=== PATIENT | female | born 1960 | race Caucasian/White ===

== ENCOUNTER 2020-04-01 09:04 | Outpatient (CLI) | payer MEDICARE, SELFPAY ==
--- NOTE | 2020-04-01 09:13 | MM_ITS ---
WS: [id number] Bilateral diagnostic digital mammogram, 04/01/2020 Clinical Data: BLOODY NIPPLE DISCHARGE Comparison: 07/24/2018, 12/16/2015, 09/05/2008, 12/21/2006. Findings: The nipple discharge is from the left breast. The breasts show fatty replacement. There are no spicul ated masses or clustered calcifications. No well-defined masses or cysts are seen. There are lymph no rosales in both axilla. MM/[id number] Impression: 1. Negative bilateral mammograms unchanged. 2. Left breast ultrasound will be performed. BIRADS: 0-Incomplete: Need additional imaging evaluation FOLLOW UP: Need Additional Imaging The CAD frequency checker was used.
--- NOTE | 2020-04-01 09:47 | US_ITS ---
WS: [id number] Left breast ultrasound, 04/01/2020 Clinical Data: BLOODY NIPPLE DISCHARGE Comparison: Mammogram, 04/01/2020 Findings: Imaging of the left areola demonstrated only normal breast tissue. There were mammary ducts that coul d be seen. There were no cysts or masses. Comparable imaging of the areola of the right breast was obtained for comparison and this was normal. US/US breast LT limited* [id number] Impression: 1. Normal left breast ultrasound. 2. If nipple discharge continues a left breast ductogram may be helpful. BIRADS: 2-Benign FOLLOW UP: See Report
== END 2020-04-01 09:05 | disposition home or self-care (01) ==
LOC: RADSHAW 09:10
PROVIDERS: PCP Family Medicine; Visit Provider Family Medicine
DX: N64.52 Nipple discharge (principal)
CPT/HCPCS: 76642; 77066

== ENCOUNTER 2020-05-19 11:02 | Emergency (ER) | payer MEDICARE, SELFPAY ==
[2020-05-19 11:03] VITALS: BP 148/90; PULSE 81; RESP 18; TEMP 37.1; O2SAT 95; BMI 44.6
--- NOTE | 2020-05-19 11:04 | ED_ITS ---
HPI - Extremity Injury (Lower) General: Chief Complaint: Fall Stated Complaint: rt hamstring pain Time Seen by Provider: 05/19/20 11:03 History of Present Illness: HPI Narrative: 60-year-old female comes in complaining of right posterior leg pain specifically the right posterior leg she not strike her head there no other injuries. Patient slipped and fell backwards. No other injuries loss of her pain is in the posterior right upper leg Review of Systems Const: Denies: fever(s), chills, body aches, change in appetite, fatigue or malaise ENMT: Denies: throat pain, ear or mastoid pain, nasal discharge or nasal congestion Card: Denies: chest pain, edema, dyspnea on exertion or orthopnea Resp: Denies: dyspnea, productive cough or non-productive cough GI: Denies: abdominal pain, nausea, vomiting, hematemesis, coffee ground emesis, diarrhea, constipation, bloating, hematochezia or melena : Denies: flank pain, difficulty voiding, dysuria, urinary frequency or urinary urgency Skin/Breast: Denies: rash or pruritus Physical Exam Const: COMMON NORMALS: no acute distress GENERAL APPEARANCE: cooperative and comfortable ORIENTATION/CONSCIOUSNESS: Yes awake, Yes oriented to person, Yes oriented to place and Yes oriented to time HENMT: COMMON NORMALS: normocephalic, atraumatic, hearing grossly normal bilaterally, external ears normal, EAC's normal, TM's normal bilaterally, Normal nasal mucous membranes and turbinates present, moist oral mucous membranes and oropharynx normal HEAD & SCALP: normocephalic and atraumatic NOSE: Normal nasal mucous membranes and turbinates present EXTERNAL EAR: Yes external ears normal EXTERNAL AUDITORY CANAL: EAC's normal TYMPANIC MEMBRANE: TM's normal bilaterally Eye: COMMON NORMALS: Equal, round and reactive pupils present, EOMs intact bilaterally, conjunctivae normal and no scleral icterus CONJUNCTIVA: Yes conjunctivae normal PUPIL: Yes Equal, round and reactive pupils present Neck/C-Spine: COMMON NORMALS: full ROM, no lymphadenopathy, supple and no JVD Lymph: LYMPHATIC: no lymphadenopathy noted and no lymphedema noted Resp: COMMON NORMALS: normal respiratory effort, No retractions, No use of accessory muscles and clear to auscultation bilaterally AUSCULTATION: clear to auscultation bilaterally Cardio: COMMON NORMALS: no JVD, regular rate, regular rhythm and No murmurs present (Cardio) RATE: regular rate RHYTHM: regular rhythm GI: COMMON NORMALS: Soft to palpation and No hepatosplenomegaly present AUSCULTATION: Yes normoactive bowel sounds PALPATION: Yes Soft to palpation, No Tenderness to palpation present (GI), No Guarding due to palpation present (GI) and Yes No hepatosplenomegaly present Extremity: COMMON NORMALS: normal to inspection, capillary refill normal, no clubbing, cyanosis or edema, no calf tenderness and no pedal edema Neuro: SENSORIUM/ORIENTATION: Yes oriented to person, Yes oriented to place and Yes oriented to time Skin: COMMON NORMALS: no rashes or lesions noted GENERAL SKIN EXAM: no rashes or lesions noted Course Vital Signs: Vital signs: Vital Signs Temperature 98.7 F 05/19/20 11:03 Pulse Rate 77 05/19/20 11:51 Respiratory Rate 16 05/19/20 11:51 Blood Pressure 142/84 05/19/20 11:51 Pulse Oximetry 98 05/19/20 11:51 MDM - Extremity Injury (Lower) MDM Narrative: Medical decision making narrative: X-rays negative no sign of fracture.'s treat for muscle strain anti-inflammatory and antispasmodics follow- up with primary care as needed Discharge Plan Discharge Patient Disposition: Home Clinical Impression: Fall, Hamstring muscle strain Condition: Stable Prescriptions: New hydrocodone-acetaminophen 5-325 mg tablet 1 tab PO Q6H PRN (Reason: pain) Qty: 20 RF: 0 diclofenac sodium 75 mg tablet,delayed release (DR/EC) 75 mg PO Q12H PRN (Reason: pain) Qty: 20 RF: 0 No Action Prozac 40 mg Capsule 40 mg PO DAILY RF: 0 Lipitor 10 mg Tablet 10 mg PO DAILY RF: 0 ibuprofen 800 mg Tablet 800 mg PO BID PRN (Reason: Pain) RF: 0 methotrexate sodium 2.5 mg Tablet 20 mg PO Q7D RF: 0 Protonix 40 mg Tablet,Delayed Release (Dr/Ec) 40 mg PO DAILY RF: 0 lisinopril 10 mg Tablet 10 mg PO DAILY RF: 0 folic acid 1 mg Tablet 1 mg PO DAILY RF: 0 Discharge Orders: Discharge Order (Routine); Ordered 05/19/20 Ordered By: Payam Pace Referrals: Puneet Corona MD [Primary Care Provider] - Discharge Diet: Usual diet Discharge Activity: Increase activity as tolerated Discharge Date/Time: 05/19/20 11:51 Coding Level of Care Code 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
--- NOTE | 2020-05-19 11:14 | XRR_ITS ---
PROCEDURE INFORMATION: Exam: XR Right Hip with Pelvis when Performed Exam date and time: 05/19/2020 11:36 AM Age: 60 years old Clinical indication: Pain and injury or trauma; Initial encounter; Blunt trauma (contusions or hematomas); Hip pain; Right hip; Patient HX: Fall right posterior hip and knee pain; Additional info: Pain after fall TECHNIQUE: Imaging protocol: XR Right hip with pelvis when performed. Views: 1 view. COMPARISON: CT Abdomen/Pelvis Renal [id number] 01/04/2019 10:22 PM FINDINGS: Bones/joints: Mild degenerative changes within the hip including mild joint space narrowing and early osteophyte formation. No fracture. The trabecular stress markings normal. Soft tissues: Unremarkable. XR/XR hip RT 2-3V wo/w pel* [id number] IMPRESSION: Mild degenerative changes within the hip.
--- NOTE | 2020-05-19 11:14 | XRR_ITS ---
PROCEDURE INFORMATION: Exam: XR Right Knee Exam date and time: 05/19/2020 11:36 AM Age: 60 years old Clinical indication: Pain and injury or trauma; Fall; Initial encounter; Blunt trauma; Knee; Right; Additional info: Pain after fall TECHNIQUE: Imaging protocol: XR Right knee. Views: 3 views. COMPARISON: No relevant prior studies available. FINDINGS: Bones/joints: Osseous structures of the knee normal. No fracture. No joint effusion. Soft tissues unremarkable. Soft tissues: Venous varicosities in the soft tissues adjacent to the proximal tibia XR/XR knee RT 3V* [id number] IMPRESSION: Normal knee.
[2020-05-19] MEDS: HYDROcodone-acetaminophen 5-325 mg Tablet 2 TAB PO (11:32)
[2020-05-19 11:51] VITALS: BP 142/84; PULSE 77; RESP 16; O2SAT 98
== END 2020-05-19 11:51 | disposition home or self-care (01) ==
LOC: ER 11:44
PROVIDERS: Emergency Provider Family Medicine; PCP Family Medicine
DX: S76.311A Strain of muscle, fascia and tendon of the posterior muscle group at thigh level, right thigh, initial encounter (principal); W01.0XXA Fall on same level from slipping, tripping and stumbling without subsequent striking against object, initial encounter
CPT/HCPCS: 12345; 73502; 73562; 99281; 99283; E0114

== ENCOUNTER 2020-10-06 07:31 | Outpatient (CLI) | payer MEDICARE, SELFPAY ==
--- NOTE | 2020-10-06 07:41 | MR_ITS ---
WS: [id number] MRI LUMBAR SPINE NONCONTRAST HISTORY: RADICULAR LOW BACK PAIN > 3 MONTHS COMPARISON: Lumbar spine radiograph 08/04/2020, prior MRI lumbar spine 04/03/2013 and 10/05/2011. TECHNIQUE: Sagittal and axial multisequence imaging is submitted. Straightening of the normal cervical lordosis. Mild scoliosis of the thoracic spine. Disc space narro wing and degeneration with osteophytes at most levels in the thoracic spine. 5 nonrib-bearing vertebr al bodies have been identified on prior studies including the lumbar spine radiograph of 08/04/2020. This numbering pattern will be utilized today and is similar to the prior numbering of the vertebral bodies on MRI. Posterior alignment is normal. There is a small amount of marrow edema along the superior endplates o f L2 and L3. Osteophytic ridging at all levels. No acute fracture. Conus terminates normally at L2. L1-L2: Mild annular disc bulging and osteophytic ridging. Fluid in the facet joints with mild bilater al foraminal narrowing. L2-L3: Diffuse annular disc bulging and osteophytic ridging. Asymmetric disc osteophyte complex in th e LEFT paracentral location. Mild bilateral foraminal stenosis. L3-L4: Diffuse asymmetric disc bulging and osteophytic ridging. Marked facet and ligamentum flavum hy pertrophy. Moderate bilateral foraminal stenosis and mild central stenosis. Bilateral narrowing of th e subarticular recesses. L4-L5: Diffuse annular disc bulging and osteophytic ridging. Marked facet and ligamentum flavum hyper trophy. Moderate bilateral foraminal stenosis and mild central stenosis. RIGHT hemilaminectomy defect . Encroachment into the subarticular recesses bilaterally. L5-S1: Diffuse annular disc bulging and osteophytic ridging. Focal RIGHT paracentral disc protrusion without contact or displacement on the nerve roots. RIGHT hemilaminectomy defect. Moderate RIGHT and mild LEFT foraminal stenosis. Paravertebral soft tissues are normal. MR/MR lumbar spine wo con* [id number] IMPRESSION: 1. Moderate facet joint arthritis with osteophyte and disc disease throughout the lumbar spine. 2. Prior laminectomy defects on the RIGHT at L4-5 and L5-S1. 3. Moderate RIGHT and mild LEFT foraminal stenosis at L5-S1. 4. Moderate bilateral foraminal and mild central stenosis at L3-4 and L4-5 wit h narrowing of the subarticular recesses. 5. At L2-3 asymmetric disc osteophyte complex LEFT paracentral with encroachme nt into the lateral recess.
== END 2020-10-06 07:32 | disposition home or self-care (01) ==
LOC: RADSHAW 07:37
PROVIDERS: PCP Family Medicine; Visit Provider Family Medicine
DX: M54.16 Radiculopathy, lumbar region (principal); M25.78 Osteophyte, vertebrae; M51.36 Other intervertebral disc degeneration, lumbar region; M96.1 Postlaminectomy syndrome, not elsewhere classified; M48.07 Spinal stenosis, lumbosacral region
CPT/HCPCS: 72148

== ENCOUNTER → 2020-11-18 09:00 | Outpatient (BNVA) | payer OTHER, SELFPAY | PROVIDERS: PCP Family Medicine; Visit Provider Orthopaedic Surgery | DX: M48.062 Spinal stenosis, lumbar region with neurogenic claudication (principal); Z11.52 Encounter for screening for COVID-19 | CPT/HCPCS: 87635 ==

== ENCOUNTER 2020-11-23 05:51 | Day surgery (SDC) | payer OTHER, MEDICARE, SELFPAY ==
[2020-11-18 09:35] VITALS: BMI 46.0
--- NOTE | 2020-11-18 09:52 | ANES.PREANE2 ---
Pre-Anesthetic Assessment Pre-Anesthetic Assessment: Height/Weight: Height 1.6 m Weight 117.934 kg Preop Diagnosis: lumbar stenosis Proposed Procedure: Operation Date: 11/23/20 07:00 Proposed Procedures p Lumbar Spine Decompression [id number] M48.062(Not Applicable) - Saw Monterroso, Familial anesthetic complications: None Social: Social History: Tobacco and No alcohol Exam: Pre-Anes Outpt Exam: alert, oriented x 3, clear to auscultation bilaterally and regular rate & rhythm Airway: Cervical ROM: WNL MP: 2 Dentition: Full CV/HEM: CV/HEM: HTN GI: GI: GERD Musc/skel: Comments: lupus and psoriatic arthritis Neuropsych: Neuropsych: None reported Anesthetic Plan: ASA status: 2 Anesthesia: General Risk of > 500 ml blood loss (7ml/kg in children): No PFSH Anesthesia PFSH: Social History (Updated 10/20/20 @ 08:13 by Dee Dee White LPN) Smoking and tobacco status: current every day smoker cigarettes Packs smoked per day: 0.5 Data Anesthesia Cardiac Studies: No Data to Display
[2020-11-23] VITALS (7 sets, daily range): BP systolic 126–161; BP diastolic 72–99; PULSE 66–97; RESP 15–20; TEMP 36.5–36.8; O2SAT 94–98
--- NOTE | 2020-11-23 | XR_ITS ---
WS: [id number] INTRAOPERATIVE TECHNIQUE: 3 Spot fluoroscopic images for intraoperative purposes. FLUOROSCOPY TIME: 12.5 seconds CLINICAL INFORMATION: LUMBAR STENOSIS COMPARISON: None. FINDINGS: Localization marker over the L4-5 interspace dorsally XR/XR lumbar spine 2-3V* [id number] IMPRESSION: Images obtained for intraoperative purposes.
--- NOTE | 2020-11-23 | SCC_ITS ---
Procedure Done: Revision of L4/5 laminectomy with partial facetectomy 12.5 seconds of fluoroscopic guidance, for a cumulative dose of 6.62 mGy, was provided to Dr. Monterroso by the radiology department. C-arm images of the lumbar spine were saved for the patient's permanent record. [facility]PT[facility] HOSPITALShakila
--- NOTE | 2020-11-23 06:29 | P.ANESUD_ITS ---
Pre-Anesthetic Update Pre-Anesthetic Assessment: Date of Surgery/Procedure: 11/23/20 Preop Marina gnosis: lumbar stenosis Proposed Procedure: Operation Date: 11/23/20 07:00 Proposed Procedures p Lumbar Spine Decompression L 4-5 [id number] M48.062(Not Applicable) - Saw Monterroso, DO Any changes to Pre-Anesthetic Assessment?: No Last Intake: Intake Last Liquid Date 11/22/20 Last Liquid Time 20:00 Last Solid Date 11/22/20 Last Solid Time 20:00 Vitals: Oxygen Delivery Me thod 11/23/20 06:14 Exam: Pre-Anes Outpt Exam: alert, oriented x 3, clear to auscultation bilaterally and regular rate & rhythm Cardiac Studies: No Data to Display
[2020-11-23] MEDS: sodium chloride 0.9% 1,000 ML 30 ML IV (06:36)
--- NOTE | 2020-11-23 06:38 | W.PM.OPSUD ---
Surgery/Procedure H&P Update DATE OF PROCEDURE: November 23, 2020 DATE H&P PERFORMED: 11/23/20 H&P UPDATE INFORMATION: I have reviewed H&P completed within last 30 days and I have examined patient prior to procedure PREOP DIAGNOSIS: lumbar stenosis PLANNED PROCEDURE: Operation Date: 11/23/20 07:00 Proposed Procedures p Lumbar Spine Decompression L 4-5 [id number] M48.062(Not Applicable) - Saw Monterroso DO
--- NOTE | 2020-11-23 06:39 | PM.HP ---
Providers/Chief Complaint Primary Care Provider: Puneet Corona MD Chief Complaint: lumbar stenosis History of Present Illness Calos Jones is a 60 year old female here for evaluation of right hip pain. She states she fell in a grocery store parking lot in May of 2020 and has been in pain since. She has also noticed weakness to her right lower extremity that makes it difficult to preform activates of daily living and enjoy activates that involve walking for long periods. Chief Complaint: right hip/buttocks pain Onset: May 2020 after falling Duration: months Characteristics: burning, sharp stabbing. Severity: 04/27 Location: right hip and buttocks Radiating symptoms: lateral right lower extremity Aggravating factors: walking long distances, Alleviating factors: none Neuro deficits: denies numbness, tingling, incontinence of bowel/bladder, saddle anesthesia. Prior tx: back surgery with noah Molina -she states it didn't do any good . Review of Systems Narrative: General: Reports: 10 or more systems reviewed and unremarkable except as noted in History and below Const: Denies: fever(s) or chills Eyes: Denies: change in vision ENMT: Denies: throat pain Card: Denies: chest pain or dyspnea on exertion Resp: Denies: dyspnea, productive cough or wheezing GI: Denies: abdominal pain, nausea or vomiting Musc: Reports: limited range of motion Skin/Breast: Denies: changes in skin color or dry skin Neuro: Reports: numbness in extremities and weakness in extremities Psych: Denies: anxiety Devyn/Lymph: Denies: easy bruising or easy bleeding Medications/Allergies Home Medications Medication Instructions Recorded Confirmed Last Taken Type atorvastatin [Lipitor] 10 mg PO DAILY 05/19/20 11/23/20 11/22/20 History fluoxetine [Prozac] 40 mg PO DAILY 05/19/20 11/23/20 11/22/20 History folic acid 1 mg PO DAILY 05/19/20 11/23/20 11/22/20 History ibuprofen 800 mg PO BID PRN 05/19/20 11/23/20 11/19/20 History lisinopril 10 mg PO DAILY 05/19/20 11/23/20 11/22/20 History methotrexate sodium 20 mg PO Q7D 05/19/20 11/23/20 11/20/20 History pantoprazole [Protonix] 40 mg PO DAILY 05/19/20 11/23/20 11/22/20 History Allergies Allergy/AdvReac Type Severity Reaction Status Date / Time No Known Allergies Allergy Verified 11/23/20 05:58 PFSH Acute PFSH: Social History (Updated 10/20/20 @ 08:13 by Dee Dee White LPN) Smoking and tobacco status: current every day smoker cigarettes Packs smoked per day: 0.5 Vitals/I&O/Wt Last Vital Signs Temp 97.7 F 11/23/20 06:34 Pulse 66 11/23/20 06:34 Resp 16 11/23/20 06:34 BP 150/88 11/23/20 06:34 Pulse Ox 98 11/23/20 06:34 Physical Exam Narrative: EXAM NARRATIVE: EXAM NARRATIVE: CONSTITUTIONAL: The patient is normal appearing, well groomed, cooperative and in no apparent distress. GENERAL: Patient in no acute distress. Well nourished. CARDIAC: Regular rate and rhythm. CHEST: Normal inspiratory effort, normal respiratory rate. ABDOMEN: Soft and non-tender. SKIN: Clear, warm and intact. NEURO?PSYCH: The patient is alert and oriented to person, place and time. NEUROVASCULAR: Upper Extremity Sensory - SILT. Motor Strength: Shoulder abduction C5: 5/5; Wrist extension C6: 5/5; Elbow extension C7: 5/5; Hand Help Desk Internship C8: 5/5; Finger abduction T1: 5/5. Radial/ Ulnar/ Median in intact Lower Extremity Sensory - SILT. Motor Strength: Hip flexion L2/3; Ant/inner thigh: 5/5; Hip adduction L2/3: 5/5; Knee extension L4 Lat thigh: 5/5; Toe dorsiflexion L5: 5/5; Ankle dorsiflexion L5/ S1: 5/5; Plantar flexion S1: 5/5. DTR: Triceps 2+; Brachioradialis 2+; Patellar 2+; Achilles 2+. MUSCULOSKELETAL: UPPER EXTREMITIES: The patient had full active ROM in fingers, wrist, elbow, and shoulder. The patient demonstrated ability to fully flex/extend/abduct/adduct fingers, make ok sign, cross 2nd/3rd digits, extend 1st digit fully.. Radial pulse 2+, CR<2 seconds. LOWER EXTREMITIES: Pt has full, active ROM of toes, ankle, knee, and hip. Dorsalis pedis & posterior tibialis pulses 2+, CR<2 seconds. SPINE: Skin warm, dry, intact. A&P Assessment and plan (1) Spinal stenosis of lumbar region with radiculopathy: Status: Acute Additional A&P Information revison L4/5 minimally invasive decompression Attestations Medical Necessity Statement*: failed conservative therapy Coding Level of Care Code Acute Chief Human Resources Officer for [facility] Diagnoses Spinal stenosis of lumbar region with radiculopathy M48.061; M54.16
--- NOTE | 2020-11-23 08:03 | PM.OP ---
Operative Report Date of procedure: November 23, 2020 Pre-op Diagnosis: lumbar stenosis Post-op diagnosis: same Procedure Done: Revision of L4/5 laminectomy with partial facetectomy Surgeon: Saw Monterroso Anesthesia: General Estimated blood loss (mL): 5 Condition: stable Disposition: PACU Procedure: Patient is brought to the operative suite. After undergoing anesthesia they are placed in the supine position. All areas of impingement are well padded. Patient is then prepped and draped in the normal sterile fashion. A skin incision is made over the L4/5 level. This is confirmed under c-arm guidance. A series of dilators are passed and the tubular retractor is docked on the L4 lamina. Previous laminectomy was identified. Once this was identified curette was used to free of the scar tissue from the dura and the facet. A bovie is used to clear the soft tissue off the lamina and the L 4/5 facet joint. A high speed tonia is then used to perform the laminectomy and take down the medial aspect of the L 4/5 facet joint. A kerrison rongeure was then used to take down the remaining lamina and smooth the edge of the laminectomy up to the point where the ligamentum flavum attaches. Attention was then brought to the medial aspect of the facet joint. The remaining medial aspect of the superior and inferior aspect of the facet joint were taken down with the kerrison from the pedicle of L4 to L 5. The facet joint had significant hypertrophy. Attention was then brought to the Ligamentum Flavum. The ligament was taken down from the lamina of L4 to L5 and out medially to the remaining facet joint. The ligament was scarred and thinned. The dura was then exposed. The dura was in good repair. The L4 nerve was then traced with a curette out the L4/5 foramen and found to be adequately decompressed. The L5 nerve was traced with a curette around the L5 pedicle. The lateral recess was opened with a kerrison helping to further decompress the L5 nerve. Wound is then irrigated copiously with saline and surgiflo is used to stop any bleeding. The tubular retractor is removed and the wound is closed with vicryl and monocryl suture. Glue is then used to protect the wound. A sterile dressing is then placed. Patient was then placed in the supine position and transferred to the PACU in stable condition.
[2020-11-23] MEDS: meperidine 50 mg/mL INJ 12.5 MG IVP (08:20)
--- NOTE | 2020-11-23 12:28 | ANE.PACU2 ---
Inpatient post-anesthesia follow up: Airway intact: Yes Vital signs: Temperature 98.1 F Pulse Rate 77 Respiratory Rate 16 Blood Pressure 126/83 Pulse Oximetry 94 Oxygen Delivery Me thod Room Air Oxygen Flow Rate 6 Fraction of Inspir ed Oxygen Hydration adequate: Yes Nausea and vomiting: No Pain level: 3 Mental status: Baseline
== END 2020-11-23 09:20 | disposition home or self-care (01) ==
PROVIDERS: PCP Family Medicine; Visit Provider Orthopaedic Surgery
PROC: (CPT 63005; principal; 2020-11-23 07:00)
DX: M48.061 Spinal stenosis, lumbar region without neurogenic claudication (principal); M54.16 Radiculopathy, lumbar region; I10 Essential (primary) hypertension; K21.9 Gastro-esophageal reflux disease without esophagitis; M32.9 Systemic lupus erythematosus, unspecified; F17.210 Nicotine dependence, cigarettes, uncomplicated
CPT/HCPCS: 63047; 72100; 76000; 96365; J0690; J1100; J2175; J2405; J2704; J2710; J3010; J3490; J7030

== ENCOUNTER 2020-11-25 05:01 | Emergency (ER) | payer MEDICARE, SELFPAY ==
[2020-11-25 05:07] VITALS: BP 157/93; PULSE 83; RESP 18; TEMP 36.4; O2SAT 95; BMI 44.6
--- NOTE | 2020-11-25 05:19 | USCV_ITS ---
Calos Jones Age: 60 Gender: F : 1960 Exam Date: 11/25/2020 05:55 Ordering Phys: Clary Garcia MD Technologist: Rosa M Dougherty Exam Location: [facility] [place]_ Indication: RLE PAIN HISTORY: Lower extremity pain. PROCEDURES: Venous duplex imaging was performed in only the right lower extremity. The following venous structures were evaluated: common femoral vein, profunda vein, proximal portion of the greater saphenous vein, superficial femoral vein, and the popliteal vein. In addition, the posterior tibial and peroneal trunk were evaluated. Serial compression, augmentation maneuvers, and spectral Doppler flow evaluation were performed. FINDINGS: No evidence of DVT seen in any vessel visualized at this time. CONCLUSIONS No evidence of right lower extremity DVT. Main Gutierrez MD (Electronically Signed) Final Date: 25 November 2020 13:07 S
--- NOTE | 2020-11-25 05:19 | CTR_ITS ---
PROCEDURE INFORMATION: Exam: CT Head Without Contrast Exam date and time: 11/25/2020 5:24 AM Age: 60 years old Clinical indication: Pain; Patient HX: Headache x 3 days; Additional info: NAIR TECHNIQUE: Imaging protocol: Computed tomography of the head without contrast. Radiation optimization: All CT scans at this facility use at least one of these dose optimization techniques: automated exposure control; mA and/or kV adjustment per patient size (includes targeted exams where dose is matched to clinical indication); or iterative reconstruction. COMPARISON: No relevant prior studies available. RADIATION DOSE METRICS: Total DLP (mGy-cm): 949.28 FINDINGS: Brain: No acute infarct or hemorrhage. Cerebral ventricles: No ventriculomegaly. Bones/joints: Unremarkable. No acute fracture. Paranasal sinuses: Tiny retention cyst in the left maxillary sinus. Mastoid air cells: Visualized mastoid air cells are clear. Soft tissues: Unremarkable. CT/CT head wo con* [id number] IMPRESSION: 1. No acute infarct or hemorrhage. 2. Tiny retention cyst in the left maxillary sinus. Radiation Dose CTDIVOL = (mGy): DLP = 949.28 (mGy-cm)
--- NOTE | 2020-11-25 05:20 | ED_ITS ---
HPI - Headache General: Chief Complaint: Headache Stated Complaint: leg pain, headache x3 days, surgery monday Time Seen by Provider: 11/25/20 05:02 Source: patient Mode of arrival: ambulatory Limitations: no limitations History of Present Illness: HPI Narrative: 60-year-old female states she had surgery on Monday. She had a lower lumbar surgery. She states that ever since the surgery she has had a headache that is been a 9 out of 10. She states it has been constant in nature and denies any worsening improving factors. She denies any vomiting or diarrhea. She denies any back pain but states she has had some right leg pain. She states she is concerned she may have a DVT as she has multiple family members has had DVTs in the past. She denies any leg weakness. She denies any fevers. Associated symptoms: Deny chest pain, fever(s), nausea, rash or vomiting Review of Systems Const: Denies: fever(s), chills, body aches or change in appetite Eyes: Denies: blurry vision or eye discomfort ENMT: Denies: throat pain or dental pain Card: Denies: chest pain Resp: Denies: dyspnea GI: Denies: abdominal pain, nausea, vomiting or diarrhea : Denies: dysuria Musc: Reports: back pain and extremity pain Skin/Breast: Denies: rash Neuro: Reports: headache(s) Psych: Denies: depression Devyn/Lymph: Denies: easy bruising All/Imm: Denies: urticaria PFSH ED PFSH: Social History (Updated 10/20/20 @ 08:13 by Dee Dee White LPN) Smoking and tobacco status: current every day smoker cigarettes Packs smoked per day: 0.5 Physical Exam Const: COMMON NORMALS: no acute distress, patient oriented x3 and healthy appearing HENMT: COMMON NORMALS: normocephalic and atraumatic HEAD & SCALP: normocephalic and atraumatic Eye: COMMON NORMALS: Equal, round and reactive pupils present and EOMs intact bilaterally PUPIL: Yes Equal, round and reactive pupils present Neck/C-Spine: COMMON NORMALS: full ROM, supple and no meningeal signs Chest: COMMONS NORMALS: normal inspection of the chest and normal palpation of entire chest wall Resp: COMMON NORMALS: normal respiratory effort, No retractions, No use of accessory muscles and clear to auscultation bilaterally AUSCULTATION: clear to auscultation bilaterally Cardio: COMMON NORMALS: regular rate, regular rhythm and No murmurs present (Cardio) RATE: regular rate RHYTHM: regular rhythm GI: COMMON NORMALS: Normal to inspection, nondistended, normoactive bowel sounds present, Soft to palpation, non-tender and no masses PALPATION: Yes Soft to palpation Back/Pelvis: OTHER: Lower back incisions clean dry and intact no tenderness along her back. Extremity: COMMON NORMALS: normal to inspection and full ROM OTHER: Slight tenderness noted to the right leg with right calf tenderness no swelling distal pulses intact Neuro: COMMON NORMALS: patient oriented x3, moves all extremities and no focal motor deficits MENINGEAL SIGNS: Yes no meningeal signs Psych: COMMON NORMALS: mental status grossly normal, Normal thought process pr esent and cooperative THOUGHT PROCESS: Normal thought process present Skin: COMMON NORMALS: no rashes or lesions noted and no wounds GENERAL SKIN EXAM: no rashes or lesions noted Course Vital Signs: Vital signs: Vital Signs Temperature 97.5 F L 11/25/20 05:07 Pulse Rate 83 11/25/20 05:07 Respiratory Rate 18 11/25/20 05:07 Blood Pressure 157/93 11/25/20 05:07 Pulse Oximetry 95 11/25/20 05:07 Discharge Plan Discharge Prescriptions: No Action fluoxetine [Prozac] 40 mg Capsule 40 mg PO DAILY RF: 0 atorvastatin [Lipitor] 10 mg Tablet 10 mg PO DAILY RF: 0 ibuprofen 800 mg Tablet 800 mg PO BID PRN (Reason: Pain) RF: 0 methotrexate sodium 2.5 mg Tablet 20 mg PO Q7D RF: 0 pantoprazole [Protonix] 40 mg Tablet,Delayed Release (Dr/Ec) 40 mg PO DAILY RF: 0 lisinopril 10 mg Tablet 10 mg PO DAILY RF: 0 folic acid 1 mg Tablet 1 mg PO DAILY RF: 0 hydrocodone-acetaminophen 5-325 mg tablet 1 - 2 tab PO .Q4-6H Qty: 40 RF: 0 Coding Level of Care Code 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
[2020-11-25] MEDS: sodium chloride 0.9% 1,000 ML 999 ML IV (05:30)
[2020-11-25] MEDS: metoclopramide 5 mg/mL SDV 2 mL 10 MG IVP (05:31)
[2020-11-25 05:32] VITALS: RESP 18; O2SAT 94
[2020-11-25] MEDS: morphine 4 mg/mL SDV 1 mL IVP (05:32)
[2020-11-25] MEDS: diphenhydrAMINE 50 mg/mL SDV 1mL IVP (05:34)
[2020-11-25 05:38] LABS: Basophils # 0.1 10^3/uL (0.0-0.1); Basophils % 0.5 %; Eosinophils # 0.2 10^3/uL (0.0-0.8); Eosinophils % 1.2 %; Hematocrit 40.8 % (37.0-47.0); Hemoglobin 12.9 g/dL (11.5-15.3); Lymphocytes # 1.4 10^3/uL (0.8-4.8); Lymphocytes % 8.8 %; Mean Corpuscular HGB Conc 31.6 g/dL (30.0-36.0); Mean Corpuscular Hemoglobin 30.8 pg (28.0-34.0); Mean Corpuscular Volume 97.4 fL (81-99); Mean Platelet Volume 9.8 fL (7.4-10.4); Monocytes % 12.4 %; Neutrophils # 12.33 10^3/uL (1.8-7.7); Neutrophils % 76.7 %; Nucleated Red Blood Cells % 0 %; Platelet Count 392 10^3/cmm (130-400); Red Blood Count 4.19 10^6/uL (4.1-5.3); Red Cell Distribution Width 14.7 % (12.1-15.1); White Blood Count 16.1 10^3/uL (4.0-10.0)
--- NOTE | 2020-11-25 05:41 | CTR_ITS ---
PROCEDURE INFORMATION: Exam: CT Lumbar Spine Without Contrast Exam date and time: 11/25/2020 5:42 AM Age: 60 years old Clinical indication: Prior surgery; Surgery type: Laminectomy; Patient HX: C/O low back pain with right leg pain. ; Additional info: NAIR TECHNIQUE: Imaging protocol: Computed tomography images of the lumbar spine without contrast. Radiation optimization: All CT scans at this facility use at least one of these dose optimization techniques: automated exposure control; mA and/or kV adjustment per patient size (includes targeted exams where dose is matched to clinical indication); or iterative reconstruction. COMPARISON: MR lumbar spine wo con* [id number] 10/06/2020 8:08 AM RADIATION DOSE METRICS: Total DLP (mGy-cm): 2262.35 FINDINGS: Vertebrae: There is normal vertebral body alignment. There are normal vertebral body heights. There is moderate facet joint hypertrophic change. There is laminectomy at L5. No fracture. Discs/Spinal canal/Neural foramina: There is stable moderate to severe disc space narrowing throughout the lumbar spine. There is moderate to severe canal stenosis at L3-L4 secondary to broad-based disc protrusion. There is mild bilateral foraminal stenosis. Soft tissues: Small amounts of gas are present deep to the superficial fascia of the paraspinal muscles on the right. There is also a small amount of gas present near the right hemilaminectomy site at L4. There is edema in the subcutaneous fat. CT/CT lumbar spine wo con* [id number] IMPRESSION: No fracture. Moderate to severe disc space narrowing with moderate facet joint osteoarthritis. Moderate to severe canal stenosis at L3-L4 secondary to broad-based disc protrusion. Small amounts of soft tissue gas on the right paraspinal soft tissues, which may be secondary to recent instrumentation. Mild edema in the subcutaneous soft tissues. Radiation Dose CTDIVOL = (mGy): DLP = 2262.35 (mGy-cm)
[2020-11-25 06:06] LABS: Alanine Aminotransferase 14 U/L (0-33); Albumin Level 3.6 g/dL (3.5-5.2); Alkaline Phosphatase 114 IU/L (35-105); Blood Urea Nitrogen 14 mg/dL (6-20); Carbon Dioxide 23 mmol/L (22-29); Chloride 101 mmol/L (98-107); Globulin 3.5 g/dL (1.3-4.6); Glomerular Filtration Rate 64.3 mL/min (90-130); Glucose 103 mg/dL (65-115); Osmolality Calculated 281 mOsm/kg (285-295); Sodium 135 mmol/L (136-145); Total Bilirubin 0.3 mg/dL (0.15-1.2); Total Protein 7.1 g/dL (6.6-8.7)
[2020-11-25 06:07] LABS: C Reactive Protein 97.1 mg/L (0.0-4.9)
[2020-11-25 06:09] LABS: Anion Gap 15.3 (5-19)
[2020-11-25 06:10] LABS: Aspartate Amino Transferase 16 U/L (0-32); Potassium 4.3 mmol/L (3.5-5.1)
[2020-11-25 06:25] VITALS: BP 132/78; PULSE 84; RESP 18; O2SAT 94
[2020-11-25 06:55] VITALS: BP 120/61; PULSE 79; RESP 18; O2SAT 93
--- NOTE | 2020-11-25 06:56 | PC.NURSE ---
Received report assumed care, no changes noted from report. NS completed. Dr Turner in room.
[2020-11-25 07:11] VITALS: BP 114/66; PULSE 82; RESP 18; TEMP 37.2; O2SAT 92
== END 2020-11-25 07:13 | disposition home or self-care (01) ==
PROVIDERS: Emergency Provider Emergency Medicine; PCP Family Medicine
DX: R51.9 Headache, unspecified (principal); F17.210 Nicotine dependence, cigarettes, uncomplicated; M79.604 Pain in right leg
CPT/HCPCS: 70450; 72131; 80053; 85025; 86140; 93971; 96361; 96374; 96375; 99284; J1200; J2270; J2765; J7030

== ENCOUNTER 2021-09-13 00:29 | Emergency (ER) | payer OTHER, SELFPAY ==
[2021-09-13 00:33] VITALS: BP 157/91; PULSE 80; RESP 16; TEMP 36.7; O2SAT 97; BMI 42.9
--- NOTE | 2021-09-13 01:40 | ED_ITS ---
Documented by User: KOSTA Benton 09/13/21 03:11 HPI - General Adult General: Chief complaint: General Medical Stated complaint: Urinating Blood\Pressure Time Seen by Provider: 09/13/21 01:25 History of Present Illness: HPI narrative: 61-year-old female comes in today with complaints of blood in urine starting this evening. Patient has a history of hysterectomy and oophorectomy. Patient reports mild discomfort with ur ination and pelvic pressure. Patient denies any fever. Review of Systems General: Reports: 10 or more systems reviewed and unremarkable except in HPI and below : Reports: difficulty voiding and hematuria [facility] ED PFSH: Medical History Cystitis Family History Mother Cancer Bleeding disorder Social History Smoking and tobacco status: current every day smoker cigarettes Packs smoked per day: 0.5 Alcohol intake: never Marital status: Current occupational status: disabled History of recent travel: No Physical Exam Const: COMMON NORMALS: no acute distress and patient oriented x3 GENERAL APPEARANCE: cooperative HENMT: COMMON NORMALS: normocephalic and Normal external nose present HEAD & SCALP: normal to inspection and normocephalic NOSE: Normal external nose present MOUTH: Normal oral and palatal mucosa present Eye: GENERAL EYE: appearance normal, both eyes and all related structures Neck/C-Spine: COMMON NORMALS: full ROM Chest: COMMONS NORMALS: normal inspection of the chest Resp: COMMON NORMALS: normal respiratory effort EFFORT & INSPECTION: Yes able to speak in complete sentences Cardio: COMMON NORMALS: regular rate and regular rhythm RATE: regular rate RHYTHM: regular rhythm GI: COMMON NORMALS: non-tender : COMMON NORMALS: Yes no CVA tenderness BLADDER/KIDNEY EXAM: Yes no CVA tenderness Back/Pelvis: COMMON NORMALS: no CVA tenderness and thoracic and lumbar spine normal to inspection Extremity: COMMON NORMALS: normal to inspection Neuro: COMMON NORMALS: patient oriented x3 and moves all extremities Psych: COMMON NORMALS: mental status grossly normal and cooperative Skin: COMMON NORMALS: no rashes or lesions noted GENERAL SKIN EXAM: no rashes or lesions noted Course Vital Signs: Vital signs: Vital Signs Temperature 98.1 F 12/27/21 00:33 Pulse Rate 80 09/13/21 00:33 Respiratory Rate 16 09/13/21 00:33 Blood Pressure 157/91 09/13/21 00:33 Pulse Oximetry 97 09/13/21 00:33 MDM - General Adult MDM Narrative: Medical decision making narrative: Patient comes in today for complaints of blood in urine starting this evening. Patient also reports some pelvic pain and pressure. Patient has a history of a hysterectomy and oophorectomy. On exam abdomen is soft and nontender with some mild tenderness in the suprapubic area. Negative CVA tenderness. Vital signs are normal. Differential diagnosis includes UTI with acute cystitis and hematuria, renal calculi, bladder cancer. Laboratory values noted a 11,000 white count, CMP had a 1.0 creatinine, urinalysis had a large amount of white blood cells and red blood cells. CT of abdomen pelvis noted a bladder wall thickening but no signs of renal calculi. Reviewed exam with patient with recommendations for treatment and follow-up. They reported understanding and agreed to plan. Patient was given Levaquin 500 mg for the next 7 days. Patient was given 1 dose of hydrocodone in the ER for discomfort. Lab Data: Labs: Lab Results 09/13/21 09/13/21 09/13/21 01:34 02:00 02:00 WBC 11.4 10^3/uL H 10 ^3/uL (4.0-10.0) RBC 4.18 10^6/uL 10^6 /uL (4.1-5.3) Hgb 13.3 g/dL g/dL (11.5-15.3) Hct 41.1 % % (37.0-47.0) MCV 98.3 fl fl (81-99) MCH 31.8 pg pg (28.0-34.0) MCHC 32.4 g/dL g/dL (30.0-36.0) RDW 14.7 % % (12.1-15.1) Plt Count 403 10^3/cmm H 10 ^3/cmm (130-400) MPV 9.5 fL fL (7.4-10.4) Neut % (Auto) 68.5 % % Lymph % (Auto) 19.4 % % Placer % (Auto) 8.6 % % Eos % (Auto) 2.4 % % Baso % (Auto) 0.8 % % Neut # (Auto) 7.81 10^3/uL H 10 ^3/uL (1.8-7.7) Lymph # (Auto) 2.2 10^3/uL 10^3/ uL (0.8-4.8) Placer # (Auto) 1.0 10^3/uL H 10^ 3/uL (0.2-0.9) Eos # (Auto) 0.3 10^3/uL 10^3/ uL (0.0-0.8) Baso # (Auto) 0.1 10^3/uL 10^3/ uL (0.0-0.1) Nucleated RBC % (a uto) 0 % % Nucleated RBCs # 0.0 /100WBC /100W BC Sodium 143 mmol/L mmol/L (136-145) Potassium 3.9 mmol/L mmol/L (3.5-5.1) Chloride 105 mmol/L mmol/L (98-107) Carbon Dioxide 26 mmol/L mmol/L (22-29) Anion Gap 15.9 (5-19) BUN 15 mg/dL mg/dL (6-20) Creatinine 1.0 mg/dL H mg/dL (0.5-0.9) GFR Calculation 56.7 mL/min L mL/ min (90-130) Glucose 107 mg/dL mg/dL (65-115) Calculated Osmolal ity 297 mOsm/kg H mOs m/kg (285-295) Calcium 8.4 mg/dL L mg/dL (8.5-10.5) Urine Color Red (Yellow) Urine Appearance Sl cloudy A (CLEAR) Urine pH 7 (5-7) Ur Specific Gravit y 1.010 (1.005-1.030) Urine Protein 3+ H (Negative) Urine Glucose (UA) Norm (Normal) Urine Ketones Negative (Negative) Urine Blood 3+ H (Negative) Urine Nitrate Negative (Negative) Urine Bilirubin Neg (Negative) Urine Urobilinogen 1 mg/dL H mg/dL (Negative) Ur Leukocyte Ale ase 2+ H (Negative) Urine RBC Too numerous to c nt /hpf H /hpf (0-2) Urine WBC >100 /hpf H /hpf (0-5) Ur Squamous Epith Cells 5-10 /hpf H /hpf (0-5) Amorphous Sediment Not Reportable Urine Bacteria Trace /hpf /hpf (NONE) Discharge Plan Discharge Patient Disposition: Home Clinical Impression: UTI (urinary tract infection) Condition: Stable Prescriptions: No Action fluoxetine [Prozac] 40 mg Capsule 40 mg PO DAILY RF: 0 atorvastatin [Lipitor] 10 mg Tablet 10 mg PO DAILY RF: 0 ibuprofen 800 mg Tablet 800 mg PO BID PRN (Reason: Pain) RF: 0 methotrexate sodium 2.5 mg Tablet 20 mg PO Q7D RF: 0 pantoprazole [Protonix] 40 mg Tablet,Delayed Release (Dr/Ec) 40 mg PO DAILY RF: 0 lisinopril 10 mg Tablet 10 mg PO DAILY RF: 0 folic acid 1 mg Tablet 1 mg PO DAILY RF: 0 Discharge Orders: Discharge ED (Routine); Ordered 09/13/21 Ordered By: Reyes Gillespie Referrals: Puneet Corona MD [Primary Care Provider] - Discharge Diet: Usual diet Discharge Activity: Increase activity as tolerated Patient Instructions: Urinary Tract Infection in Women (ED), Opioid Safety Activity Restrictions/Additional Instructions: Drink plenty of fluids. Take antibiotic as directed. Follow-up with primary care in 3 days for recheck. Case management will contact you regarding urology follow-up. Return to the ER for new concerns or worsening symptoms. Coding Level of Care Code ED Building Engineer for Chg Fwd Exam Comprehensive Documented by User: Esvin Mcelroy DO 09/24/21 19:39 HPI - General Adult General: Chief complaint: General Medical Stated complaint: Urinating Blood\Pressure Time Seen by Provider: 09/13/21 01:25 [facility] ED PFSH: Medical History Cystitis Family History Mother Cancer Bleeding disorder Social History Smoking and tobacco status: current every day smoker cigarettes Packs smoked per day: 0.5 Alcohol intake: never Marital status: Current occupational status: disabled History of recent travel: No Course Vital Signs: Vital signs: Vital Signs Temperature 98.1 F 09/13/21 00:33 Pulse Rate 80 09/13/21 00:33 Respiratory Rate 16 09/13/21 00:33 Blood Pressure 157/91 09/13/21 00:33 Pulse Oximetry 97 09/13/21 00:33 MDM - General Adult MDM Narrative: Medical decision making narrative: This patient was originally seen by KOSTA Guy. I agree with his history, evaluation, and treatment. Lab Data: Labs: Lab Results 09/13/21 09/13/21 09/13/21 01:34 02:00 02:00 WBC 11.4 10^3/uL H 10 ^3/uL (4.0-10.0) RBC 4.18 10^6/uL 10^6 /uL (4.1-5.3) Hgb 13.3 g/dL g/dL (11.5-15.3) Hct 41.1 % % (37.0-47.0) MCV 98.3 fl fl (81-99) MCH 31.8 pg pg (28.0-34.0) MCHC 32.4 g/dL g/dL (30.0-36.0) RDW 14.7 % % (12.1-15.1) Plt Count 403 10^3/cmm H 10 ^3/cmm (130-400) MPV 9.5 fL fL (7.4-10.4) Neut % (Auto) 68.5 % % Lymph % (Auto) 19.4 % % Placer % (Auto) 8.6 % % Eos % (Auto) 2.4 % % Baso % (Auto) 0.8 % % Neut # (Auto) 7.81 10^3/uL H 10 ^3/uL (1.8-7.7) Lymph # (Auto) 2.2 10^3/uL 10^3/ uL (0.8-4.8) Placer # (Auto) 1.0 10^3/uL H 10^ 3/uL (0.2-0.9) Eos # (Auto) 0.3 10^3/uL 10^3/ uL (0.0-0.8) Baso # (Auto) 0.1 10^3/uL 10^3/ uL (0.0-0.1) Nucleated RBC % (a uto) 0 % % Nucleated RBCs # 0.0 /100WBC /100W BC Sodium 143 mmol/L mmol/L (136-145) Potassium 3.9 mmol/L mmol/L (3.5-5.1) Chloride 105 mmol/L mmol/L (98-107) Carbon Dioxide 26 mmol/L mmol/L (22-29) Anion Gap 15.9 (5-19) BUN 15 mg/dL mg/dL (6-20) Creatinine 1.0 mg/dL H mg/dL (0.5-0.9) GFR Calculation 56.7 mL/min L mL/ min (90-130) Glucose 107 mg/dL mg/dL (65-115) Calculated Osmolal ity 297 mOsm/kg H mOs m/kg (285-295) Calcium 8.4 mg/dL L mg/dL (8.5-10.5) Urine Color Red (Yellow) Urine Appearance Sl cloudy A (CLEAR) Urine pH 7 (5-7) Ur Specific Gravit y 1.010 (1.005-1.030) Urine Protein 3+ H (Negative) Urine Glucose (UA) Norm (Normal) Urine Ketones Negative (Negative) Urine Blood 3+ H (Negative) Urine Nitrate Negative (Negative) Urine Bilirubin Neg (Negative) Urine Urobilinogen 1 mg/dL H mg/dL (Negative) Ur Leukocyte Ale ase 2+ H (Negative) Urine RBC Too numerous to c nt /hpf H /hpf (0-2) Urine WBC >100 /hpf H /hpf (0-5) Ur Squamous Epith Cells 5-10 /hpf H /hpf (0-5) Amorphous Sediment Not Reportable Urine Bacteria Trace /hpf /hpf (NONE) Discharge Plan Discharge Patient Disposition: Home Clinical Impression: UTI (urinary tract infection) Condition: Stable Prescriptions: No Action fluoxetine [Prozac] 40 mg Capsule 40 mg PO DAILY RF: 0 atorvastatin [Lipitor] 10 mg Tablet 10 mg PO DAILY RF: 0 ibuprofen 800 mg Tablet 800 mg PO BID PRN (Reason: Pain) RF: 0 methotrexate sodium 2.5 mg Tablet 20 mg PO Q7D RF: 0 pantoprazole [Protonix] 40 mg Tablet,Delayed Release (Dr/Ec) 40 mg PO DAILY RF: 0 lisinopril 10 mg Tablet 10 mg PO DAILY RF: 0 folic acid 1 mg Tablet 1 mg PO DAILY RF: 0 Discharge Orders: Discharge ED (Routine); Ordered 09/13/21 Ordered By: Reyes Gillespie Referrals: Puneet Corona MD [Primary Care Provider] - Discharge Diet: Usual diet Discharge Activity: Increase activity as tolerated Patient Instructions: Urinary Tract Infection in Women (ED), Opioid Safety Activity Restrictions/Additional Instructions: Drink plenty of fluids. Take antibiotic as directed. Follow-up with primary care in 3 days for recheck. Case management will contact you regarding urology follow-up. Return to the ER for new concerns or worsening symptoms. Coding Level of Care Code ED Building Engineer for Patria Fwd Exam Comprehensive
--- NOTE | 2021-09-13 02:16 | CTR_ITS ---
PROCEDURE INFORMATION: Exam: CT Abdomen And Pelvis Without Contrast Exam date and time: 09/13/2021 2:16 AM Age: 61 years old Clinical indication: Other: Hematuria; Abdominal pain; Localized; Lower TECHNIQUE: Imaging protocol: Computed tomography of the abdomen and pelvis without contrast. Radiation optimization: All CT scans at this facility use at least one of these dose optimization techniques: automated exposure control; mA and/or kV adjustment per patient size (includes targeted exams where dose is matched to clinical indication); or iterative reconstruction. COMPARISON: CT Abdomen/Pelvis Renal [id number] 01/04/2019 10:22 PM RADIATION DOSE METRICS: Total DLP (mGy-cm): 1830.51 FINDINGS: Liver: Normal. No mass. Gallbladder and bile ducts: The gallbladder appears contracted. Pancreas: Normal. No ductal dilation. Spleen: Normal. No splenomegaly. Adrenal glands: Normal. No mass. Kidneys and ureters: Normal. No hydronephrosis. Stomach and bowel: Unremarkable. No obstruction. No mucosal thickening. Appendix: The appendix is visualized and is normal in configuration. Intraperitoneal space: Unremarkable. No free air. No significant fluid collection. Vasculature: Unremarkable. No abdominal aortic aneurysm. Lymph nodes: Unremarkable. No enlarged lymph nodes. Urinary bladder: Bladder is contracted. Some hazy opacities are seen adjacent to the bladder serosal margin, findings that could represent mild inflammatory changes and cystitis. Reproductive: Status post hysterectomy. Bones/joints: Diffuse loss of disc height is seen within the thoracolumbar spine compatible with degenerative disc disease. Soft tissues: Unremarkable. CT/CT kidney stone [id number] IMPRESSION: 1. There are no acute abdominal findings. 2. The bladder is contracted. Subtle haziness seen along the serosal margin of the bladder. This is a nonspecific finding but could represent inflammatory changes and cystitis in the appropriate clinical setting.
[2021-09-13 02:19] LABS: Add Urine Microscopic? YES; Bilirubin Urine Neg (Negative); Blood Urine 3+ (Negative); Glucose Urine UA Norm (Normal); Ketones Urine Negative (Negative); Leukocyte Esterase Urine 2+ (Negative); Nitrate Urine Negative (Negative); Protein Urine 3+ (Negative); Urine Color Red (Yellow); Urobilinogen Urine 1 mg/dL (Negative); pH Urine 7 (5-7)
[2021-09-13 02:21] LABS: Add Urine Culture? Yes; Bacteria Urine TRACE /hpf; RBC Urine TOO NUMEROUS TO CNT /hpf (0-2); WBC Urine >100 /hpf (0-5)
[2021-09-13 02:27] LABS: Basophils # 0.1 10^3/uL (0.0-0.1); Basophils % 0.8 %; Eosinophils # 0.3 10^3/uL (0.0-0.8); Eosinophils % 2.4 %; Hematocrit 41.1 % (37.0-47.0); Hemoglobin 13.3 g/dL (11.5-15.3); Lymphocytes # 2.2 10^3/uL (0.8-4.8); Lymphocytes % 19.4 %; Mean Corpuscular HGB Conc 32.4 g/dL (30.0-36.0); Mean Corpuscular Hemoglobin 31.8 pg (28.0-34.0); Mean Corpuscular Volume 98.3 fl (81-99); Mean Platelet Volume 9.5 fL (7.4-10.4); Monocytes % 8.6 %; Neutrophils # 7.81 10^3/uL (1.8-7.7); Neutrophils % 68.5 %; Nucleated Red Blood Cells % 0 %; Platelet Count 403 10^3/cmm (130-400); Red Blood Count 4.18 10^6/uL (4.1-5.3); Red Cell Distribution Width 14.7 % (12.1-15.1); White Blood Count 11.4 10^3/uL (4.0-10.0)
[2021-09-13 02:50] LABS: Anion Gap 15.9 (5-19); Blood Urea Nitrogen 15 mg/dL (6-20); Calcium 8.4 mg/dL (8.5-10.5); Carbon Dioxide 26 mmol/L (22-29); Chloride 105 mmol/L (98-107); Glomerular Filtration Rate 56.7 mL/min (90-130); Glucose 107 mg/dL (65-115); Osmolality Calculated 297 mOsm/kg (285-295); Potassium 3.9 mmol/L (3.5-5.1); Sodium 143 mmol/L (136-145)
[2021-09-13] MEDS: levoFLOXacin 500 mg Tablet PO (03:18)
[2021-09-13] MEDS: HYDROcodone-acetaminophen 5-325 mg Tablet 1 TAB PO (03:18)
--- NOTE | 2021-09-13 15:52 | DCPLANNER ---
site safety manager had message to schedule a follow up appointment for patient with Dr. Kovacs office. site safety manager sent Luis Maldonado and An patients information thru task audio production manager. Patients information will be printed and reviewed. Clinic will call patient with appointment information.
--- NOTE | 2021-09-14 16:16 | DCPLANNER ---
Patient has a follow up appointment scheduled for Monday, September 24, 2021 at 9:[address] Mcdonough, urology. Clinic will call patient with appointment information.
--- NOTE | 2021-10-05 07:50 | DCPLANNER ---
Patient had a follow up appointment 09.24.[address] Mcdonough - patient did attend appointment.
== END 2021-09-13 03:32 | disposition home or self-care (01) ==
PROVIDERS: Emergency Provider Nurse Practitioner Family; PCP Family Medicine
DX: N30.01 Acute cystitis with hematuria (principal); F17.210 Nicotine dependence, cigarettes, uncomplicated
CPT/HCPCS: 51798; 74176; 80048; 81001; 85025; 87077; 87086; 87186; 99283

== ENCOUNTER → 2021-09-24 08:29 | Outpatient (BNVA) | payer OTHER, SELFPAY | PROVIDERS: PCP Family Medicine; Visit Provider Urology | DX: N30.90 Cystitis, unspecified without hematuria (principal) | CPT/HCPCS: 81003 ==

== ENCOUNTER → 2021-12-14 13:36 | Outpatient (BNVA) | payer MEDICARE, OTHER, SELFPAY | PROVIDERS: PCP Family Medicine; Visit Provider Orthopaedic Surgery | DX: M54.50 Low back pain, unspecified (principal); M47.896 Other spondylosis, lumbar region | CPT/HCPCS: 72110 ==

== ENCOUNTER 2021-12-30 12:12 | Emergency (ER) | payer MEDICARE, SELFPAY ==
[2021-12-30 12:31] VITALS: BP 176/97; PULSE 70; RESP 14; TEMP 36.8; O2SAT 98; BMI 42.9
--- NOTE | 2021-12-30 12:44 | XR_ITS ---
WS: [id number] Portable AP upright chest, 12/30/2021 Clinical Data: chest pressure Comparison: None. Findings: No nodules, masses or effusions are seen. The heart is normal. The pulmonary vascularity is not increased. No pneumonia or pneumothorax is seen. The aortic arch and descending thoracic aorta s how mild tortuosity. There is a left hilar calcification from old granulomatous disease. XR/XR chest 1V portable [id number] Impression: Atherosclerosis.
--- NOTE | 2021-12-30 14:45 | ECG_ITS ---
[facility] Test Date: 2021-12-30 Pat Name: Calos Jones Department: Room: Gender: Female Energy Efficiency Engineer: : 1960 Requested By: Cristobal Elliott Order Number: [id number] Daljit MD: Emir Bear M.D. Measurements Intervals [place] Rate: 64 P: 55 [place]: 142 QRS: 28 QRSD: 92 T: 41 QT: 381 QTc: 395 Interpretive Statements SINUS RHYTHM No previous ECG available for comparison Electronically Signed On 12-30-2021 18:12:57 CDT by Emir Bear M.D. [email or web address]
--- NOTE | 2021-12-30 14:58 | ED_ITS ---
Documented by User: Payam Pace DO 01/03/22 07:23 HPI - General Adult General: Chief complaint: General Medical Stated complaint: High BP Time Seen by Provider: 12/30/21 14:57 Source: patient Mode of arrival: ambulatory Limitations: no limitations History of Present Illness: 61-year-old female presents emergency room states she was sitting in a chair at home began having some difficulty breathing a little bit of chest heaviness checked her blood pressure was 180/106. This improved some since then. Her chest heaviness is also resolved she did not have any con commitment nausea diaphoresis. She is not diabetic she does smoke she had previously had any Lexiscan sestamibi stress test that was unremarkable. She has no known history of coronary artery disease. She has a known history of hypertension hyperlipidemia Onset (ago): hour(s) Location: chest Radiation: non-radiation Severity: mild and severe Quality: dull Pain Consistency: now resolved Relieving factors: none Exacerbating factors: none Associated symptoms: Reports chest pain, dyspnea and short of breath; Deny confusion, cough, diaphoresis, decreased appetite, fevers/chills, headache(s), malaise, nausea, rash, palpitations, seizures, syncope, vomiting or weakness Review of Systems Const: Denies: malaise or diaphoresis ENMT: Denies: throat pain, ear or mastoid pain, nasal discharge or nasal congestion Card: Reports: chest pain; Denies: palpitations, irregular heart rhythm, edema or syncope Resp: Reports: dyspnea GI: Denies: abdominal pain, nausea or vomiting : Denies: flank pain, difficulty voiding, dysuria, urinary frequency or urinary urgency Skin/Breast: Denies: rash Neuro: Denies: headache(s) or confusion [facility] ED PFSH: Medical History Cystitis Family History Mother Cancer Bleeding disorder Social History Smoking and tobacco status: current every day smoker cigarettes Packs smoked per day: 0.5 Alcohol intake: never Marital status: Current occupational status: disabled History of recent travel: No Physical Exam Const: GENERAL APPEARANCE: cooperative and comfortable ORIENTATION/CONSCIOUSNESS: Yes awake, Yes oriented to person, Yes oriented to place and Yes oriented to time HENMT: COMMON NORMALS: normocephalic, atraumatic and hearing grossly normal bilaterally HEAD & SCALP: normocephalic and atraumatic Neck/C-Spine: COMMON NORMALS: no JVD Resp: COMMON NORMALS: normal respiratory effort, No retractions, No use of accessory muscles and clear to auscultation bilaterally AUSCULTATION: clear to auscultation bilaterally Cardio: COMMON NORMALS: no JVD, regular rate, regular rhythm and No murmurs present (Cardio) RATE: regular rate RHYTHM: regular rhythm GI: COMMON NORMALS: Soft to palpation and No hepatosplenomegaly present AUSCULTATION: Yes normoactive bowel sounds PALPATION: Yes Soft to palpation, No Tenderness to palpation present (GI), No Guarding due to palpation present (GI) and Yes No hepatosplenomegaly present Extremity: COMMON NORMALS: normal to inspection, capillary refill normal, no clubbing, cyanosis or edema, no calf tenderness and no pedal edema Neuro: SENSORIUM/ORIENTATION: Yes oriented to person, Yes oriented to place and Yes oriented to time Skin: COMMON NORMALS: no rashes or lesions noted GENERAL SKIN EXAM: no rashes or lesions noted Course Vital Signs: Vital signs: Vital Signs Temperature 98.2 F 12/30/21 12:31 Pulse Rate 66 12/30/21 16:30 Respiratory Rate 16 12/30/21 16:30 Blood Pressure 137/88 12/30/21 16:30 Pulse Oximetry 93 12/30/21 16:30 MDM - General Adult Medical Decision Making Care signed out to Dr. Miller at change of shift. See final notes for diagnosis and disposition. Patient care handoff received from Dr. Pace pending completion of ED evalu ation. Labs notable for no significant hematologic or metabolic abnormality, delta troponin is negative. X-ray reviewed. Patient feels well and pain-free on reassessment. Patient is comfortable with further evaluation in the outpatient setting and I will message case management for arrangement of further cardiac evaluation. Satisfactory for outpatient management. Jovany Miller MD Emergency Medicine Medical Records I reviewed the patient's medical records. Lab Data I reviewed the patient's lab results. : 12/30/21 15:20 12/30/21 15:20 Radiology Impressions Chest X-Ray 12/30/21 12:44 Impression: Atherosclerosis. Laboratory Results WBC 8.4 10^3/uL (4.0-10.0) 12/30/21 15:20 RBC 4.38 10^6/uL (4.1-5.3) 12/30/21 15:20 Hgb 13.7 g/dL (11.5-15.3) 12/30/21 15:20 Hct 41.9 % (37.0-47.0) 12/30/21 15:20 MCV 95.7 fl (81-99) 12/30/21 15:20 MCH 31.3 pg (28.0-34.0) 12/30/21 15:20 MCHC 32.7 g/dL (30.0-36.0) 12/30/21 15:20 RDW 14.6 % (12.1-15.1) 12/30/21 15:20 Plt Count 358 10^3/cmm (130-400) 12/30/21 15:20 MPV 9.5 fL (7.4-10.4) 12/30/21 15:20 Neut % (Auto) 58.1 % 12/30/21 15:20 Lymph % (Auto) 26.5 % 12/30/21 15:20 [place] % (Auto) 10.4 % 12/30/21 15:20 Eos % (Auto) 4.0 % 12/30/21 15:20 Baso % (Auto) 0.6 % 12/30/21 15:20 Neut # (Auto) 4.88 10^3/uL (1.8-7.7) 12/30/21 15:20 Lymph # (Auto) 2.2 10^3/uL (0.8-4.8) 12/30/21 15:20 [place] # (Auto) 0.9 10^3/uL (0.2-0.9) 12/30/21 15:20 Eos # (Auto) 0.3 10^3/uL (0.0-0.8) 12/30/21 15:20 Baso # (Auto) 0.1 10^3/uL (0.0-0.1) 12/30/21 15:20 Nucleated RBC % (auto) 0 % 12/30/21 15:20 Nucleated RBCs # 0.0 /100WBC 12/30/21 15:20 Sodium 140 mmol/L (136-145) 12/30/21 15:20 Potassium 4.5 mmol/L (3.5-5.1) 12/30/21 15:20 Chloride 104 mmol/L (98-107) 12/30/21 15:20 Carbon Dioxide 27 mmol/L (22-29) 12/30/21 15:20 Anion Gap 13.5 (5-19) 12/30/21 15:20 BUN 14 mg/dL (6-20) 12/30/21 15:20 Creatinine 0.7 mg/dL (0.5-0.9) 12/30/21 15:20 GFR Calculation 85.6 mL/min (90-130) L 12/30/21 15:20 Glucose 100 mg/dL (65-115) 12/30/21 15:20 Calculated Osmolality 291 mOsm/kg (285-295) 12/30/21 15:20 Calcium 9.5 mg/dL (8.5-10.5) 12/30/21 15:20 Troponin T Baseline 7 ng/L (0-10) 12/30/21 15:20 Troponin T 120 Minute 6.00 ng/L (0-10) 12/30/21 17:24 Delta Troponin T -1.00 ABS# (0-10) L 12/30/21 17:24 Discharge Plan Discharge Patient Disposition: Home Clinical Impression: Hypertension, Chest pain Condition: Stable Prescriptions: No Action fluoxetine [Prozac] 40 mg Capsule 40 mg PO DAILY 0RF Rx Instructions: Take 40 mg orally with 20 mg orally to equal 60 mg once daily atorvastatin [Lipitor] 10 mg Tablet 10 mg PO DAILY 0RF ibuprofen 800 mg Tablet 800 mg PO BID PRN (Reason: Pain) 0RF methotrexate sodium 2.5 mg Tablet 20 mg PO Q7D 0RF Rx Instructions: On Fridays pantoprazole [Protonix] 40 mg Tablet,Delayed Release (Dr/Ec) 40 mg PO DAILY 0RF lisinopril 10 mg Tablet 10 mg PO DAILY 0RF folic acid 1 mg Tablet 1 mg PO DAILY 0RF Prozac 20 mg Capsule 20 mg PO DAILY 0RF Rx Instructions: Take 20 mg orally with 40 mg orally to equal 60 mg once daily Discharge Orders: Discharge ED (Routine); Ordered 12/30/21 Ordered By: Jovany Miller Referrals: Puneet Corona MD [Primary Care Provider] - Discharge Diet: Usual diet Discharge Activity: Resume usual activity Patient Instructions: Chest Pain (ED), Hypertension (ED) Activity Restrictions/Additional Instructions: Thank you for visiting the emergency department. You were seen and evaluated for chest pain and high blood pressure. The exact cause of your symptoms is unclear however we are pleased that this improved. Given description of the symptoms and other factors we will message case management regarding outpatient further cardiac testing. Additionally please increase your lisinopril from 10 mg to 20 mg daily. Please follow-up with your primary care provider. Please return to the emergency department for worsening symptoms, recurrent chest pain, or anything else that you are concerned about and feel needs emergency department evaluation. Coding Level of Care Code ED User Acceptance Tester for Chg Fwd Exam Comprehensive Documented by User: Jovany Miller MD 01/02/22 11:58 HPI - General Adult General: Chief complaint: General Medical Stated complaint: High BP Time Seen by Provider: 12/30/21 14:57 [facility] ED PFSH: Medical History Cystitis Family History Mother Cancer Bleeding disorder Social History Smoking and tobacco status: current every day smoker cigarettes Packs smoked per day: 0.5 Alcohol intake: never Marital status: Current occupational status: disabled History of recent travel: No Course Vital Signs: Vital signs: Vital Signs Temperature 98.2 F 12/30/21 12:31 Pulse Rate 66 12/30/21 16:30 Respiratory Rate 16 12/30/21 16:30 Blood Pressure 137/88 12/30/21 16:30 Pulse Oximetry 93 12/30/21 16:30 MDM - General Adult Medical Decision Making Patient care handoff received from Dr. Pace pending completion of ED evaluation. Labs notable for no significant hematologic or metabolic abnormality, delta troponin is negative. X-ray reviewed. Patient feels well and pain-free on reassessment. Patient is comfortable with further evaluation in the outpatient setting and I will message case management for arrangement of further cardiac evaluation. Satisfactory for outpatient management. Jovany Miller MD Emergency Medicine Lab Data : 12/30/21 15:20 12/30/21 15:20 Radiology Impressions Chest X-Ray 12/30/21 12:44 Impression: Atherosclerosis. Laboratory Results WBC 8.4 10^3/uL (4.0-10.0) 12/30/21 15:20 RBC 4.38 10^6/uL (4.1-5.3) 12/30/21 15:20 Hgb 13.7 g/dL (11.5-15.3) 12/30/21 15:20 Hct 41.9 % (37.0-47.0) 12/30/21 15:20 MCV 95.7 fl (81-99) 12/30/21 15:20 MCH 31.3 pg (28.0-34.0) 12/30/21 15:20 MCHC 32.7 g/dL (30.0-36.0) 12/30/21 15:20 RDW 14.6 % (12.1-15.1) 12/30/21 15:20 Plt Count 358 10^3/cmm (130-400) 12/30/21 15:20 MPV 9.5 fL (7.4-10.4) 12/30/21 15:20 Neut % (Auto) 58.1 % 12/30/21 15:20 Lymph % (Auto) 26.5 % 12/30/21 15:20 [place] % (Auto) 10.4 % 12/30/21 15:20 Eos % (Auto) 4.0 % 12/30/21 15:20 Baso % (Auto) 0.6 % 12/30/21 15:20 Neut # (Auto) 4.88 10^3/uL (1.8-7.7) 12/30/21 15:20 Lymph # (Auto) 2.2 10^3/uL (0.8-4.8) 12/30/21 15:20 [place] # (Auto) 0.9 10^3/uL (0.2-0.9) 12/30/21 15:20 Eos # (Auto) 0.3 10^3/uL (0.0-0.8) 12/30/21 15:20 Baso # (Auto) 0.1 10^3/uL (0.0-0.1) 12/30/21 15:20 Nucleated RBC % (auto) 0 % 12/30/21 15:20 Nucleated RBCs # 0.0 /100WBC 12/30/21 15:20 Sodium 140 mmol/L (136-145) 12/30/21 15:20 Potassium 4.5 mmol/L (3.5-5.1) 12/30/21 15:20 Chloride 104 mmol/L (98-107) 12/30/21 15:20 Carbon Dioxide 27 mmol/L (22-29) 12/30/21 15:20 Anion Gap 13.5 (5-19) 12/30/21 15:20 BUN 14 mg/dL (6-20) 12/30/21 15:20 Creatinine 0.7 mg/dL (0.5-0.9) 12/30/21 15:20 GFR Calculation 85.6 mL/min (90-130) L 12/30/21 15:20 Glucose 100 mg/dL (65-115) 12/30/21 15:20 Calculated Osmolality 291 mOsm/kg (285-295) 12/30/21 15:20 Calcium 9.5 mg/dL (8.5-10.5) 12/30/21 15:20 Troponin T Baseline 7 ng/L (0-10) 12/30/21 15:20 Troponin T 120 Minute 6.00 ng/L (0-10) 12/30/21 17:24 Delta Troponin T -1.00 ABS# (0-10) L 12/30/21 17:24 Discharge Plan Discharge Patient Disposition: Home Clinical Impression: Hypertension, Chest pain Condition: Stable Prescriptions: No Action fluoxetine [Prozac] 40 mg Capsule 40 mg PO DAILY 0RF Rx Instructions: Take 40 mg orally with 20 mg orally to equal 60 mg once daily atorvastatin [Lipitor] 10 mg Tablet 10 mg PO DAILY 0RF ibuprofen 800 mg Tablet 800 mg PO BID PRN (Reason: Pain) 0RF methotrexate sodium 2.5 mg Tablet 20 mg PO Q7D 0RF Rx Instructions: On Fridays pantoprazole [Protonix] 40 mg Tablet,Delayed Release (Dr/Ec) 40 mg PO DAILY 0RF lisinopril 10 mg Tablet 10 mg PO DAILY 0RF folic acid 1 mg Tablet 1 mg PO DAILY 0RF Prozac 20 mg Capsule 20 mg PO DAILY 0RF Rx Instructions: Take 20 mg orally with 40 mg orally to equal 60 mg once daily Discharge Orders: Discharge ED (Routine); Ordered 12/30/21 Ordered By: Jovany Miller Referrals: Puneet Corona MD [Primary Care Provider] - Discharge Diet: Usual diet Discharge Activity: Resume usual activity Patient Instructions: Chest Pain (ED), Hypertension (ED) Activity Restrictions/Additional Instructions: Thank you for visiting the emergency department. You were seen and evaluated for chest pain and high blood pressure. The exact cause of your symptoms is unclear however we are pleased that this improved. Given description of the symptoms and other factors we will message case management regarding outpatient further cardiac testing. Additionally please increase your lisinopril from 10 mg to 20 mg daily. Please follow-up with your primary care provider. Please return to the emergency department for worsening symptoms, recurrent chest pain, or anything else that you are concerned about and feel needs emergency department evaluation. Coding Level of Care Code ED User Acceptance Tester for Patria Fwarpita Exam Comprehensive
[2021-12-30 15:38] VITALS: BP 166/97; PULSE 72; RESP 20; O2SAT 98
[2021-12-30 15:38] LABS: Basophils # 0.1 10^3/uL (0.0-0.1); Basophils % 0.6 %; Eosinophils # 0.3 10^3/uL (0.0-0.8); Hematocrit 41.9 % (37.0-47.0); Hemoglobin 13.7 g/dL (11.5-15.3); Lymphocytes # 2.2 10^3/uL (0.8-4.8); Lymphocytes % 26.5 %; Mean Corpuscular HGB Conc 32.7 g/dL (30.0-36.0); Mean Corpuscular Hemoglobin 31.3 pg (28.0-34.0); Mean Corpuscular Volume 95.7 fl (81-99); Mean Platelet Volume 9.5 fL (7.4-10.4); Monocytes # 0.9 10^3/uL (0.2-0.9); Monocytes % 10.4 %; Neutrophils # 4.88 10^3/uL (1.8-7.7); Neutrophils % 58.1 %; Nucleated Red Blood Cells % 0 %; Platelet Count 358 10^3/cmm (130-400); Red Blood Count 4.38 10^6/uL (4.1-5.3); Red Cell Distribution Width 14.6 % (12.1-15.1); White Blood Count 8.4 10^3/uL (4.0-10.0)
--- NOTE | 2021-12-30 15:54 | PC.NURSE ---
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
[2021-12-30 16:00] VITALS: BP 158/94; PULSE 63; RESP 18; O2SAT 95
[2021-12-30 16:12] LABS: Troponin(5th) Baseline 7 ng/L (0-10)
[2021-12-30 16:15] LABS: Anion Gap 13.5 (5-19); Blood Urea Nitrogen 14 mg/dL (6-20); Calcium 9.5 mg/dL (8.5-10.5); Carbon Dioxide 27 mmol/L (22-29); Chloride 104 mmol/L (98-107); Glomerular Filtration Rate 85.6 mL/min (90-130); Glucose 100 mg/dL (65-115); Osmolality Calculated 291 mOsm/kg (285-295); Potassium 4.5 mmol/L (3.5-5.1); Sodium 140 mmol/L (136-145)
[2021-12-30 16:30] VITALS: BP 137/88; PULSE 66; RESP 16; O2SAT 93
--- NOTE | 2021-12-30 18:45 | ECG_ITS ---
[facility] Test Date: 2021-12-30 Pat Name: Calos Jones Department: Room: Gender: Female Project Administrator: : 1960 Requested By: Cristobal Elliott Order Number: [id number] Daljit MD: Kinsey Russo M.D. Measurements Intervals [place] Rate: 53 P: 38 [place]: 145 QRS: 0 QRSD: 94 T: 16 QT: 406 QTc: 385 Interpretive Statements SINUS BRADYCARDIA Compared to ECG 12/30/2021 12:43:26 Sinus rhythm no longer present Electronically Signed On 12-31-2021 18:21:39 CDT by Kinsey Russo M.D. [email or web address] [employer] [id number]
== END 2021-12-30 19:05 | disposition home or self-care (01) ==
PROVIDERS: Emergency Medicine; Emergency Provider Emergency Medicine; PCP Family Medicine
DX: R07.9 Chest pain, unspecified (principal); I10 Essential (primary) hypertension
CPT/HCPCS: 71045; 80048; 84484; 85025; 93005; 99283

== ENCOUNTER 2022-01-05 05:57 | Day surgery (SDC) | payer MEDICARE, SELFPAY ==
[2022-01-03 12:49] VITALS: BMI 41.1
--- NOTE | 2022-01-03 15:55 | ANES.PREANE2 ---
Pre-Anesthetic Assessment Height/Weight: Height 1.63 m Weight 108.862 kg Preop Diagnosis: Lumbar stenosis with neurogenic claudication Operation Date: 01/07/22 07:00 Proposed Procedures p Lumbar Spine Decompression L5/S1 23690/(Not Applicable) - Saw Monterroso, Familial anesthetic complications: none Was Beta Joann taken within 24 hours: N/A Was Clonidine taken within 24 hours: N/A Social Tobacco and No alcohol Exam alert, oriented x 3, clear to auscultation bilaterally and regular rate & rhythm Airway Submandibular: within normal limits Cervical ROM: within normal limits Mallampati: Class II Dentition: chipped Pulmonary Exertional Dyspnea CV/HEM Hypertension and None reported EKG 12/30/21 ? Interpretive Statements SINUS BRADYCARDIA Compared to ECG 12/30/2021 12:43:26 Sinus rhythm no longer present Electronically Signed On 12-31-2021 18:21:39 CDT by Kinsey Russo M.D. [id number] Hematuria Hepatic None reported GI Gastroesophageal Reflux Disease Metabolic None reported [facility] [place] Rheumatoid Arthritis Neuropsych Neuropathy Neurogenic claudication Anesthetic Plan ASA status: 3 Anesthesia: Anesthesia Evaluation and General Other: We discussed risk and benefits of general anesthesia including PONV, sore throat (sometimes severe), corneal abrasion, positioning and peripheral nerve injuries, life threatening allergic reaction, post operative ICU admission requiring prolonged intubation, stroke, heart attack, , blindness, and rare incidences of recall. Patient consents to proceed with general anesthesia. Risk of > 500 ml blood loss (7ml/kg in children): No Medications/Allergies Home Medications Medication Instructions Recorded Confirmed Last Taken Type atorvastatin 10 mg tablet (Lipitor) 10 mg PO DAILY 05/19/20 01/03/22 12/29/21 History fluoxetine 40 mg capsule (Prozac) 40 mg PO DAILY 05/19/20 01/03/22 12/30/21 History folic acid 1 mg tablet 1 mg PO DAILY 05/19/20 01/03/22 12/30/21 History ibuprofen 800 mg tablet 800 mg PO BID PRN 05/19/20 01/03/22 11/19/20 History lisinopril 10 mg tablet 20 mg PO DAILY 05/19/20 01/03/22 12/30/21 History methotrexate sodium 2.5 mg tablet 20 mg PO Q7D 05/19/20 01/03/22 12/24/21 History pantoprazole 40 mg tablet,delayed 40 mg PO DAILY 05/19/20 01/03/22 12/30/21 History release (Protonix) fluoxetine 20 mg capsule (Prozac) 20 mg PO DAILY 12/30/21 01/03/22 12/30/21 History Allergies Allergy/AdvReac Type Severity Reaction Status Date / Time No Known Allergies Allergy Verified 01/03/22 12:46 [facility] Anesthesia Medical History Cystitis Family History Mother Cancer Bleeding disorder Social History Smoking and tobacco status: current every day smoker cigarettes Packs smoked per day: 0.5 Alcohol intake: never Marital status: Current occupational status: disabled History of recent travel: No Data Anesthesia Cardiac Studies: No Data to Display
[2022-01-05] VITALS (12 sets, daily range): BP systolic 130–201; BP diastolic 84–103; PULSE 66–93; RESP 14–20; TEMP 36.1–36.6; O2SAT 92–99
--- NOTE | 2022-01-05 | SCC_ITS ---
Procedure done: Revision Right L5/S1 laminectomy and partial facetectomy 12.4 seconds of fluoroscopic guidance, for a cumulative dose of 5.07 mGy, was provided to Dr. Monterroso by the radiology department. C-arm images of the lumbar spine were saved for the patient's permanent record. DONTRELL
--- NOTE | 2022-01-05 | XR_ITS ---
WS: [id number] Exam: XR lumbar spine 1V [id number] Date/Time of Exam: 01/05/2022 12:00 AM Reason For Exam: lumbar stenosis with neuro claudication 2 anterior posterior C-arm intraoperative images of the lower lumbar spine are submitted for evaluati on. Both images depict localization instruments superimposing the L5-S1 disc level. No other signific ant finding on this limited series.
[2022-01-05] MEDS: sodium chloride 0.9% 1,000 ML 30 ML IV (06:28)
--- NOTE | 2022-01-05 06:51 | P.ANESUD_ITS ---
Pre-Anesthetic Update Pre-Anesthetic Assessment: Date of Surgery/Procedure: 01/05/22 Preop Marina gnosis: Lumbar stenosis with neurogenic claudication Proposed Procedure: Operation Date: 01/05/22 07:00 Proposed Procedures p Lumbar Spine Decompression L5/S1 60512/(Not Applicable) - Saw Monterroso, DO Any changes to Pre-Anesthetic Assessment?: No Last Intake: Intake Last Liquid Date 01/04/22 Last Liquid Time 19:00 Last Solid Date 01/04/22 Last Solid Time 19:00 Vitals: Temperature 97 F L 01/05/22 06:23 Temperature Source Temporal Artery S can 01/05/22 06:23 Pulse Rate 66 01/05/22 06:23 Respiratory Rate 18 01/05/22 06:23 Blood Pressure 148/88 01/05/22 06:23 Blood Pressure Mary n 108 01/05/22 06:23 Pulse Oximetry 99 01/05/22 06:23 Oxygen Delivery Me thod 01/05/22 06:30 Exam: Pre-Anes Outpt Exam: alert, oriented x 3, clear to auscultation bilaterally and regular rate & rhythm Other Pertinent Information: Other Pertinent Information: Patient on immunosuppression for lupus Cardiac Studies: No Data to Display
--- NOTE | 2022-01-05 07:02 | W.PM.OPSUD ---
Surgery/Procedure H&P Update DATE OF PROCEDURE: January 05, 2022 DATE H&P PERFORMED: 12/14/21 H&P UPDATE INFORMATION: I have reviewed H&P completed within last 30 days, I have examined patient prior to procedure and No changes to prior documentation PREOP DIAGNOSIS: Lumbar stenosis with neurogenic claudication PLANNED PROCEDURE: Operation Date: 01/05/22 07:00 Proposed Procedures p Lumbar Spine Decompression L5/S1 74391/(Not Applicable) - Saw Monterroso DO
[2022-01-05] MEDS: meperidine 50 mg/mL INJ 12.5 MG IVP (08:17)
--- NOTE | 2022-01-05 08:29 | PM.OP ---
Operative Report Date of procedure: January 05, 2022 Pre-op diagnosis: Preop Diagnosis Lumbar stenosis with neurogenic claudication Post-op diagnosis: same Procedure done: Revision Right L5/S1 laminectomy and partial facetectomy Surgeon: Saw Monterroso Distributed Generation Project Manager: Olivier Saleh Distributed Generation Project Manager: The surgical instrument technician, Olivier Saleh, KAMALA was needed for his expertise under the microscope. He was important and necessary throughout the procedure to complete in a safe and timely manner. He assisted with patient positioning prepping and draping tissue retraction suctioning of the operative field protection of the dural sac and tissue closure Estimated blood loss (mL): 5 Procedure: Revision Right L5/S1 laminectomy and partial facetectomy Patient is brought to the operative suite. After undergoing anesthesia they are placed in the prone position. All areas of impingement are well padded. Patient is then prepped and draped in the normal sterile fashion. A skin incision is made over the L5/S1 level. This is confirmed under c-arm guidance. A series of dilators are passed and the tubular retractor is docked on the L5 lamina. A bovie is used to clear the soft tissue off the lamina and the L 5/S1 facet joint. A high speed tonia is then used to perform the laminectomy and take down the medial aspect of the L 5/S1 facet joint. A kerrison rongeure was then used to take down the remaining lamina and smooth the edge of the laminectomy up to the point where the ligamentum flavum attaches. Attention was then brought to the medial aspect of the facet joint. The remaining medial aspect of the superior and inferior aspect of the facet joint were taken down with the kerrison from the pedicle of L5 to S1. The facet joint had significant hypertrophy. Attention was then brought to the Ligamentum Flavum. The ligament was taken down from the lamina and scar tissue of L5 to S1 and out medially to the remaining facet joint. The ligament was thick. The dura was then exposed. The dura was in good repair. The L5 nerve was then traced with a curette out the L5/S1 foramen and found to be adequately decompressed. The S1 nerve was traced with a curette around the S1 pedicle. The lateral recess was opened with a kerrison helping to further decompress the S1 nerve. Wound is then irrigated copiously with saline and surgiflo is used to stop any bleeding. The tubular retractor is removed and the wound is closed with vicryl and monocryl suture. Glue is then used to protect the wound. A sterile dressing is then placed. Patient was then placed in the supine position and transferred to the PACU in stable condition.
--- NOTE | 2022-01-05 09:01 | SUR.PHASEI ---
0810 PT TO PACU 4 PT AWAKE ALERT ON 8L MASK IV TO RT HAND #20 PATENT 100ML UP NS AT KVO RATE PER GRAVITY, PT MOVES BILAT FEET STRONGLY AND TO COMMAND, STRONG DORSAL FLEXATION AND EXTENSION NOTED, PT ENCOURAGED TO COUGH AND DEEP BREATH, PT HX OF SMOKING,PT SHIVERNG UNCONTROLLABLY WARM BLANKETS TO PT X 4, PT ID BRACELET TO RT HAND PT ID WITH 2 IDENTIFIERS
--- NOTE | 2022-01-05 15:31 | ANE.PACU2 ---
Inpatient post-anesthesia follow up: Airway intact: Yes Vital signs: Temperature 97.6 F Pulse Rate 77 Respiratory Rate 18 Blood Pressure 166/100 Pulse Oximetry 94 Oxygen Delivery Me thod Room Air Oxygen Flow Rate 2 Fraction of Inspir ed Oxygen Hydration adequate: Yes Nausea and vomiting: No Pain level: 1 Mental status: Baseline
== END 2022-01-05 09:42 | disposition home or self-care (01) ==
PROVIDERS: PCP Family Medicine; Visit Provider Orthopaedic Surgery
PROC: (CPT 63005; principal; 2022-01-05 07:00)
DX: M48.062 Spinal stenosis, lumbar region with neurogenic claudication (principal); I10 Essential (primary) hypertension; K21.9 Gastro-esophageal reflux disease without esophagitis; M06.9 Rheumatoid arthritis, unspecified; F17.210 Nicotine dependence, cigarettes, uncomplicated
CPT/HCPCS: 63047; 72020; 76000; J1100; J1200; J2175; J2250; J2370; J2405; J2704; J2710; J3010; J3490; J7030

== ENCOUNTER → 2022-01-20 09:24 | Outpatient (BNVA) | payer MEDICARE, SELFPAY | PROVIDERS: PCP Family Medicine; Visit Provider Physician Assistant | DX: Z47.89 Encounter for other orthopedic aftercare (principal); Z98.890 Other specified postprocedural states | CPT/HCPCS: 99024; 99999 ==

== ENCOUNTER → 2022-03-03 07:50 | Outpatient (BNVA) | payer MEDICARE, SELFPAY | PROVIDERS: PCP Family Medicine; Visit Provider Physician Assistant | DX: Z47.89 Encounter for other orthopedic aftercare (principal); M70.61 Trochanteric bursitis, right hip; M70.62 Trochanteric bursitis, left hip | CPT/HCPCS: 99024 ==

== ENCOUNTER 2022-04-20 10:42 | Outpatient (CLI) | payer MEDICARE, SELFPAY ==
--- NOTE | 2022-04-20 10:48 | MM_ITS ---
WS: [id number] DIAGNOSTIC BILATERAL DIGITAL BREAST TOMOSYNTHESIS MAMMOGRAPHY WITH CAD LEFT breast ultrasound, limited. HISTORY: Bloody discharge LEFT nipple. COMPARISON: 04/01/2020, 07/24/2018, 12/16/2015 TECHNIQUE: Bilateral craniocaudad, mediolateral oblique, and mediolateral views are submitted with to mosynthesis and SM. Spot compression LEFT CC. Computer aided detection utilized. Breast composition: There are scattered areas of fibroglandular density. No suspicious mass or calcif ication. No change in appearance of the LEFT breast subareolar location. LEFT breast ultrasound, limited. The ducts behind the LEFT nipple are mildly dilated tortuous measuring up to 3 mm in diameter. There is a small amount of debris within the ducts but no mass or increased vascularity. MM/[place] [id number] IMPRESSION: BI-RADS: 2-Benign FOLLOW UP: 1 Year Follow-up There are mildly prominent ducts posterior to the LEFT nipple consistent with d uct ectasia. No mass identified. With the history of bloody nipple discharge co nsider evaluation by surgery. If bloody nipple discharge persists or increases MRI may be helpful or reevaluation by ultrasound.
== END 2022-04-20 10:43 | disposition home or self-care (01) ==
LOC: RAD 10:43
PROVIDERS: PCP Family Medicine; Visit Provider Family Medicine
DX: N64.52 Nipple discharge (principal)
CPT/HCPCS: 76642; 77062

== ENCOUNTER 2022-07-15 13:22 | Outpatient (CLI) | payer MEDICARE, SELFPAY ==
--- NOTE | 2022-07-15 | CT_ITS ---
WS: [id number] LDCT LUNG CANCER SCREENING HISTORY: HX TOBACCO USE TECHNIQUE: Axial imaging performed from the apices to 1 cm below the costophrenic angles. Coronal and sagittal reformats are submitted with axial MIP series. All CT scans at [facility] use at least one of these dose optimization techniques: automated exposure control; mA and/or kV adjustment per patient size (includes targeted exams where dose is matched to clinical indication); or iterativ e reconstruction. DLP: 75.69 mGy.cm DIvol: Mean CTDIvol: 1.60 (mGy) COMPARISON: None available. Diagnostic quality: Satisfactory Lung Nodules: No pulmonary mass or nodule. No endobronchial lesions. Lungs are well-aerated. Heart: Normal size heart. No pericardial effusion. Other findings: Normal size pulmonary artery. Normal size aorta. Heavy calcification noted in the hil ar regions. No hiatal hernia. CT/CT lung screening [id number] IMPRESSION: LUNG-RADS: 1-Negative FOLLOW UP: 12 Month: Continue annual screening with LDCT OTHER FINDINGS (S MODIFIER): None.
--- NOTE | 2022-07-15 13:34 | XR_ITS ---
WS: [id number] SCREENING DEXA SCAN WIB CLINICAL INFORMATION: POSTMENOPAUSAL COMPARISON: None. FINDINGS: The L1-L4 bone mineral density measures 1.181 g/cm2. This corresponds to a T score score of 0.0 and Z score of 0.0. Left femoral neck bone mineral density measures 0.992 g/cm2. This corresponds to a T score of -0.1 an d Z score of 0.0. Right femoral neck bone mineral density measures 0.942 g/cm2. This corresponds to a T score -0.5of an d Z score of -0.4. Mean femoral neck bone mineral density measures 0.967 g/cm2. This corresponds to a T score of -0.3 an d Z score of -0.2. XR/XR DEXA axial skeleton* [id number] IMPRESSION: Normal bone mineralization. Patient's FRAX calculated 10 year probability for major osteoporotic fracture i s 6.8 % and osteoporotic hip fracture is 0.9%.
== END 2022-07-15 13:23 | disposition home or self-care (01) ==
PROVIDERS: PCP Family Medicine; Visit Provider Nurse Practitioner Family
DX: Z78.0 Asymptomatic menopausal state (principal); Z87.891 Personal history of nicotine dependence
CPT/HCPCS: 71271; 77080

== ENCOUNTER 2023-03-11 07:14 | Emergency (ER) | payer MEDICARE, SELFPAY ==
[2023-03-11] VITALS (7 sets, daily range): BP systolic 162–190; BP diastolic 69–128; PULSE 54–73; RESP 16–18; TEMP 36.7; O2SAT 94–98; BMI 45.4
--- NOTE | 2023-03-11 07:37 | ED_ITS ---
HPI - Back Pain/Injury General: Chief Complaint: Back Pain/Injury Stated Complaint: rt lower back pain Time Seen by Provider: 03/11/23 07:20 Source: patient Mode of arrival: ambulatory History of Present Illness: 62-year-old female who presents to the emergency room with complaint of right flank pain. She has had it for 2 weeks she was seen at an outside clinic she was treated for presumptive UTI they told her she had some blood in her urine and did an x-ray. Suspect that she had a KUB based on what she is describing they told her they did not see anything on that. She never really seem to get better and states actually been progressively worse. She has not seen any gross hematuria. She denies dysuria urgency or frequency or fever she complains of right flank pain radiating around into the right lower abdomen. No vomiting no diarrhea. No history of nephrolithiasis. MD elicited complaint: back pain Onset (ago): day(s) Timing: constant Severity: moderate Similar Symptoms Previously: Yes Quality: sharp Location: right flank Exacerbating factors: none Relieving factors: none Associated symptoms: Reports dysuria, urinary frequency and urinary urgency; Deny abdominal pain, arthralgias, chills, change in bowel habits, difficulty walking, fatigue, fecal incontinence, fever(s), hematuria, myalgias, nausea, numbness, syncope, tingling/numbness/burning, vomiting or weakness Review of Systems Const: Denies: fever(s), chills, fatigue or malaise ENMT: Denies: throat pain, ear or mastoid pain, nasal discharge or nasal congestion Card: Denies: chest pain or syncope Resp: Denies: dyspnea, productive cough or non-productive cough GI: Denies: abdominal pain, nausea, vomiting, fecal incontinence or change in bowel habits : Reports: flank pain, dysuria, urinary frequency and urinary urgency; Denies: hematuria Skin/Breast: Denies: rash or pruritus Neuro: Denies: difficulty walking PFSH ED PFSH: Medical History Cystitis Family History Mother Cancer Bleeding disorder Social History Smoking and tobacco status: current every day smoker cigarettes Packs smoked per day: 0.5 Alcohol intake: never Substance/Drug Use: never Marital status: Current occupational status: disabled Physical Exam Const: GENERAL APPEARANCE: cooperative and comfortable ORIENTATION/CONSCIOUSNESS: Yes awake, Yes oriented to person, Yes oriented to place and Yes oriented to time HENMT: COMMON NORMALS: normocephalic, atraumatic and hearing grossly normal bilaterally HEAD & SCALP: normocephalic and atraumatic Resp: COMMON NORMALS: normal respiratory effort, No retractions, No use of accessory muscles and clear to auscultation bilaterally AUSCULTATION: clear to auscultation bilaterally Cardio: COMMON NORMALS: regular rhythm and No murmurs present (Cardio) RATE: bradycardic RHYTHM: regular rhythm GI: COMMON NORMALS: Soft to palpation and No hepatosplenomegaly present AUSCULTATION: Yes normoactive bowel sounds PALPATION: Yes Soft to palpation, No Tenderness to palpation present (GI), No Guarding due to palpation present (GI) and Yes No hepatosplenomegaly present Extremity: COMMON NORMALS: normal to inspection, capillary refill normal, no clubbing, cyanosis or edema, no calf tenderness and no pedal edema Neuro: SENSORIUM/ORIENTATION: Yes oriented to person, Yes oriented to place and Yes oriented to time Skin: COMMON NORMALS: no rashes or lesions noted GENERAL SKIN EXAM: no rashes or lesions noted Course Vital Signs: Vital signs: Vital Signs Temperature 98.0 F 03/11/23 07:19 Pulse Rate 54 L 03/11/23 11:13 Respiratory Rate 16 03/11/23 11:13 Blood Pressure 162/69 03/11/23 11:13 Pulse Oximetry 97 03/11/23 11:13 Oxygen Delivery Me thod Room Air 03/11/23 08:09 MDM - Back Pain/Injury Medical Decision Making CT shows moderate constipation. No other significant findings Labs and UA reviewed. Discussed with patient we will discharge home. There was some constipation on his CTs somebody believes musculoskeletal low back pain she is exacerbated with movement. Follow-up with her primary care Medical Records I reviewed the patient's medical records. Labs I reviewed the patient's lab results. 03/11/23 07:40 03/11/23 07:40 Radiology Impressions Abdomen/Pelvis CT 03/11/23 07:58 IMPRESSION: 1. No acute abnormality seen on the non-contrast abdominal and pelvic CT. 2. Bladder not well distended with relative wall prominence. Assessment is limited. 3. Mild to moderate constipation. Mild sigmoid colonic diverticulosis, without CT evidence of diverticulitis. Laboratory Results WBC 5.9 10^3/uL (4.0-10.0) 03/11/23 07:40 RBC 4.94 10^6/uL (4.1-5.3) 03/11/23 07:40 Hgb 14.8 g/dL (11.5-15.3) 03/11/23 07:40 Hct 47.3 % (37.0-47.0) H 03/11/23 07:40 MCV 95.7 fl (81-99) 03/11/23 07:40 MCH 30.0 pg (28.0-34.0) 03/11/23 07:40 MCHC 31.3 g/dL (30.0-36.0) 03/11/23 07:40 RDW 14.3 % (12.1-15.1) 03/11/23 07:40 Plt Count 386 10^3/cmm (130-400) 03/11/23 07:40 MPV 8.9 fL (7.4-10.4) 03/11/23 07:40 Neut % (Auto) 58.0 % 03/11/23 07:40 Lymph % (Auto) 24.6 % 03/11/23 07:40 [place] % (Auto) 9.9 % 03/11/23 07:40 Eos % (Auto) 6.3 % 03/11/23 07:40 Baso % (Auto) 0.9 % 03/11/23 07:40 Neut # (Auto) 3.39 10^3/uL (1.8-7.7) 03/11/23 07:40 Lymph # (Auto) 1.4 10^3/uL (0.8-4.8) 03/11/23 07:40 [place] # (Auto) 0.6 10^3/uL (0.2-0.9) 03/11/23 07:40 Eos # (Auto) 0.4 10^3/uL (0.0-0.8) 03/11/23 07:40 Baso # (Auto) 0.1 10^3/uL (0.0-0.1) 03/11/23 07:40 Nucleated RBC % (auto) 0 % 03/11/23 07:40 Nucleated RBCs # 0.0 /100WBC 03/11/23 07:40 Sodium 139 mmol/L (136-145) 03/11/23 07:40 Potassium 4.8 mmol/L (3.5-5.1) 03/11/23 07:40 Chloride 103 mmol/L (98-107) 03/11/23 07:40 Carbon Dioxide 26 mmol/L (22-29) 03/11/23 07:40 Anion Gap 14.8 (5-19) 03/11/23 07:40 BUN 13 mg/dL (8-23) 03/11/23 07:40 Creatinine 0.8 mg/dL (0.5-0.9) 03/11/23 07:40 GFR Calculation 73.2 mL/min (90-130) L 03/11/23 07:40 Glucose 108 mg/dL (65-115) 03/11/23 07:40 Calculated Osmolality 289 mOsm/kg (285-295) 03/11/23 07:40 Calcium 9.3 mg/dL (8.5-10.5) 03/11/23 07:40 Total Bilirubin 0.3 mg/dL (0.15-1.2) 03/11/23 07:40 AST 22 U/L (0-32) 03/11/23 07:40 ALT 23 U/L (0-33) 03/11/23 07:40 Alkaline Phosphatase 143 U/L (35-105) H 03/11/23 07:40 Total Protein 7.3 g/dL (6.6-8.7) 03/11/23 07:40 Albumin 4.1 g/dL (3.5-5.2) 03/11/23 07:40 Globulin 3.2 g/dL (1.3-4.6) 03/11/23 07:40 Urine Color Yellow (Yellow) 03/11/23 08:01 Urine Appearance Clear (CLEAR) 03/11/23 08:01 Urine pH 5 (5-7) 03/11/23 08:01 Ur Specific [place] 1.020 (1.005-1.030) 03/11/23 08:01 Urine Protein Neg (Negative) 03/11/23 08:01 Urine Glucose (UA) Norm (Normal) 03/11/23 08:01 Urine Ketones Negative (Negative) 03/11/23 08:01 Urine Blood 2+ (Negative) H 03/11/23 08:01 Urine Nitrate Negative (Negative) 03/11/23 08:01 Urine Bilirubin Neg (Negative) 03/11/23 08:01 Urine Urobilinogen Norm mg/dL (Negative) 03/11/23 08:01 Ur Leukocyte Esterase Trace (Negative) H 03/11/23 08:01 Urine RBC 0-4 /hpf (0-2) H 03/11/23 08:01 Urine WBC 0-4 /hpf (0-5) H 03/11/23 08:01 Ur Squamous Epith Cells 15-25 /hpf (0-5) H 03/11/23 08:01 Amorphous Sediment Not Reportable 03/11/23 08:01 Urine Bacteria 1+ /hpf (NONE) H 03/11/23 08:01 Discharge Plan Discharge Patient Disposition: Home Clinical Impression: Strain of lumbar region, Constipation Condition: Stable Prescriptions: New doxycycline hyclate 100 mg capsule 100 mg PO BID 10 Days Qty: 20 0RF tizanidine 4 mg tablet 4 mg PO Q6H PRN (Reason: muscle spasticity) Qty: 20 0RF Rx Instructions: do not exceed 3 doses per 24 hrs Held ibuprofen 800 mg Tablet 800 mg PO BID PRN (Reason: Pain) Hold Instructions: Resume on 03/21/23. Use diclofenac instead of ibuprofen f or the next 10 days No Action fluoxetine [Prozac] 40 mg Capsule 40 mg PO DAILY Rx Instructions: Take 40 mg orally with 20 mg orally to equal 60 mg once daily atorvastatin [Lipitor] 10 mg Tablet 10 mg PO DAILY methotrexate sodium 2.5 mg Tablet 20 mg PO Q7D Rx Instructions: On Fridays pantoprazole [Protonix] 40 mg Tablet,Delayed Release (Dr/Ec) 40 mg PO DAILY lisinopril 10 mg Tablet 20 mg PO DAILY folic acid 1 mg Tablet 1 mg PO DAILY hydrocodone-acetaminophen 5-325 mg tablet 1 - 2 tab PO .Q4-6H Qty: 40 0RF fluoxetine [Prozac] 20 mg Capsule 20 mg PO DAILY Rx Instructions: Take 20 mg orally with 40 mg orally to equal 60 mg once daily Discharge Orders: Discharge ED (Routine); Ordered 03/11/23 Ordered By: Payam Pace Referrals: Puneet Corona MD [Primary Care Provider] - Patient Instructions: Opioid Safety, Pain Management Coding Level of Care Code ED [employer] for [employer]ria Moses
[2023-03-11 07:54] LABS: Basophils # 0.1 10^3/uL (0.0-0.1); Basophils % 0.9 %; Eosinophils # 0.4 10^3/uL (0.0-0.8); Eosinophils % 6.3 %; Hematocrit 47.3 % (37.0-47.0); Hemoglobin 14.8 g/dL (11.5-15.3); Lymphocytes # 1.4 10^3/uL (0.8-4.8); Lymphocytes % 24.6 %; Mean Corpuscular HGB Conc 31.3 g/dL (30.0-36.0); Mean Corpuscular Volume 95.7 fl (81-99); Mean Platelet Volume 8.9 fL (7.4-10.4); Monocytes # 0.6 10^3/uL (0.2-0.9); Monocytes % 9.9 %; Neutrophils # 3.39 10^3/uL (1.8-7.7); Nucleated Red Blood Cells % 0 %; Platelet Count 386 10^3/cmm (130-400); Red Blood Count 4.94 10^6/uL (4.1-5.3); Red Cell Distribution Width 14.3 % (12.1-15.1); White Blood Count 5.9 10^3/uL (4.0-10.0)
--- NOTE | 2023-03-11 07:58 | CTR_ITS ---
PROCEDURE INFORMATION: Exam: CT Abdomen And Pelvis Without Contrast Exam date and time: 03/11/2023 8:15 AM Age: 62 years old Clinical indication: Abdominal pain; Flank; Right; Prior surgery; Surgery date: 6+ months; Surgery type: Hyster, smith hernia repair; Additional info: Flank pain TECHNIQUE: Imaging protocol: Computed tomography of the abdomen and pelvis without contrast. Radiation optimization: All CT scans at this facility use at least one of these dose optimization techniques: automated exposure control; mA and/or kV adjustment per patient size (includes targeted exams where dose is matched to clinical indication); or iterative reconstruction. REPORTING DATA: Count of CT and Cardiac NM exams in prior 12 months: This patient has received [address] and 0 known cardiac nuclear medicine studies in the 12 months prior to the current study. COMPARISON: CT kidney stone [id number] 09/13/2021 2:28 AM RADIATION DOSE METRICS: Total DLP (mGy-cm): 1072.37 FINDINGS: Lungs: The visualized portions of the lung bases are normal. Liver: Appears unremarkable on the non-contrast CT. Gallbladder and bile ducts: No calcified stones. No ductal dilation. Pancreas: Appears unremarkable on the non-contrast CT. No ductal dilation. Spleen: Appears unremarkable on the non-contrast CT. No splenomegaly. Adrenal glands: Normal. No mass. Kidneys and ureters: Appear unremarkable on the non-contrast CT. No hydronephrosis. Stomach and bowel: The non-contrast opacified stomach is not well distended with relative gastric fold prominence. Assessment is limited. The noncontrast opacified small bowel loops appear unremarkable. The noncontrast opacified loops of colon show mild to moderate constipation. Mild sigmoid colonic diverticulosis, without CT evidence of diverticulitis.The lack of orally administered contrast material limits assessment. Appendix: No CT evidence of appendicitis. Intraperitoneal space: No abdominal ascites. No free air. Vasculature: No abdominal aortic aneurysm. Lymph nodes: No enlarged retroperitoneal lymph nodes. Some nonspecific subcentimeter bilateral inguinal lymph nodes are seen. Urinary bladder: The bladder is not well distended with relative wall prominence. Assessment is limited. Reproductive: The patient is status post hysterectomy. Bones/joints: No acute osseous abnormality seen. Vacuum phenomenon and disc space narrowing is seen at the L2-L3 and L5-S1 levels, related to degenerative disc disease change. 0.1 cm retrolisthesis of L2 on L3. Mild bilateral hip degenerative changes. Soft tissues: Unremarkable. CT/CT kidney stone [id number] IMPRESSION: 1. No acute abnormality seen on the non-contrast abdominal and pelvic CT. 2. Bladder not well distended with relative wall prominence. Assessment is limited. 3. Mild to moderate constipation. Mild sigmoid colonic diverticulosis, without CT evidence of diverticulitis.
[2023-03-11] MEDS: sodium chloride 0.9% 1,000 ML 999 ML IV (08:02)
[2023-03-11] MEDS: ondansetron 2 mg/ML SDV 2 mL 4 MG IVP (08:04)
[2023-03-11] MEDS: morphine 4 mg/mL SDV 1 mL IVP (08:04)
[2023-03-11 08:20] LABS: Alanine Aminotransferase 23 U/L (0-33); Albumin Level 4.1 g/dL (3.5-5.2); Alkaline Phosphatase 143 U/L (35-105); Anion Gap 14.8 (5-19); Aspartate Amino Transferase 22 U/L (0-32); Blood Urea Nitrogen 13 mg/dL (8-23); Calcium 9.3 mg/dL (8.5-10.5); Carbon Dioxide 26 mmol/L (22-29); Chloride 103 mmol/L (98-107); Globulin 3.2 g/dL (1.3-4.6); Glomerular Filtration Rate 73.2 mL/min (90-130); Glucose 108 mg/dL (65-115); Osmolality Calculated 289 mOsm/kg (285-295); Potassium 4.8 mmol/L (3.5-5.1); Sodium 139 mmol/L (136-145); Total Bilirubin 0.3 mg/dL (0.15-1.2); Total Protein 7.3 g/dL (6.6-8.7)
[2023-03-11 08:27] LABS: Urine Appearance Clear (CLEAR); Urine Color Yellow (Yellow); pH Urine 5 (5-7)
[2023-03-11 08:28] LABS: Add Urine Microscopic? YES; Bilirubin Urine Neg (Negative); Blood Urine 2+ (Negative); Glucose Urine UA Norm (Normal); Ketones Urine Negative (Negative); Leukocyte Esterase Urine Trace (Negative); Nitrate Urine Negative (Negative); Protein Urine Neg (Negative); Urobilinogen Urine Norm (Negative)
[2023-03-11 08:31] LABS: Add Urine Culture? No; Bacteria Urine 1+ /hpf; RBC Urine 0-4 /hpf (0-2); Squamous Epithelial Cell Urine 15-25 /hpf (0-5); WBC Urine 0-4 /hpf (0-5)
== END 2023-03-11 11:15 | disposition home or self-care (01) ==
PROVIDERS: Emergency Provider Family Medicine; PCP Family Medicine
DX: K59.00 Constipation, unspecified (principal); S39.012A Strain of muscle, fascia and tendon of lower back, initial encounter; K57.30 Diverticulosis of large intestine without perforation or abscess without bleeding; F17.210 Nicotine dependence, cigarettes, uncomplicated; X58.XXXA Exposure to other specified factors, initial encounter
CPT/HCPCS: 74176; 80053; 81001; 85025; 96361; 96374; 96375; 99285; J2270; J2405; J7030

== ENCOUNTER → 2023-05-16 08:34 | Outpatient (BNVA) | payer MEDICARE, SELFPAY | PROVIDERS: PCP Family Medicine; Visit Provider Orthopaedic Surgery | DX: M48.062 Spinal stenosis, lumbar region with neurogenic claudication; Z47.89 Encounter for other orthopedic aftercare; M47.816 Spondylosis without myelopathy or radiculopathy, lumbar region | CPT/HCPCS: 72100; 99214 ==

== ENCOUNTER 2023-06-13 09:00 | Outpatient (CLI) | payer MEDICARE, SELFPAY ==
--- NOTE | 2023-06-13 09:30 | MR_ITS ---
WS: [id number] MRI LUMBAR SPINE NONCONTRAST TECHNIQUE: Sagittal T1, T2 and STIR imaging. Axial T1 and T2 imaging. CLINICAL INFORMATION: lumbar pain COMPARISON: None. FINDINGS: 5 nonrib-bearing vertebral bodies have been identified on prior studies. This numbering pattern will be utilized today in concordance with the prior numbering pattern on the previous MRI Slight anterolisthesis C3 on C4. Mild disc bulging in the cervical spine with mild central canal sten osis in the [employer] imaging. Tiny central protrusions T10-11 T11-12. Prior hemilaminectomies RIGHT L4-L5 and L5-S1. L1-L2: Tiny central protrusion. Slight effacement of the ventral thecal sac. Mild narrowing of the de [place] paz barticular recess. Foramen are patent. Mild facet arthropathy. L2-L3: Central disc protrusion with mild central canal stenosis. Narrowing of the subarticular recess bilaterally. Protrusion at this level has progressed. Mild bilateral foraminal narrowing. L3-L4: Mild annular bulging. Mild central canal stenosis with narrowing of the subarticular recess bi laterally. Tiny annular fissure. Mild bilateral foraminal narrowing. Moderate facet arthropathy. L4-L5: Prior laminectomy defects. Spinal canal is patent. Moderate facet arthropathy. Mild bilateral foraminal narrowing with small foraminal protrusions. L5-S1: Prior RIGHT hemilaminectomy. Moderate facet arthropathy. Spinal canal and foramen are patent. Visualized pelvic bony structures: Normal. Paravertebral soft tissues: Normal. LEFT adrenal nodule likely adenoma measuring 14 mm. IMPRESSION: Some images degraded by motion. 1. Central disc protrusion L2-3 has progressed compared to previous with mild central canal stenosis and narrowing of the subarticular recess bilaterally. 2. Prior hemilaminectomy defects L4-L5 and L5-S1 unchanged compared to previous. 3. Mild annular bulging with a tiny annular fissure L3-4 with slight effacement of the ventral theca l sac and mild narrowing of the subarticular recess similar to previous. 4. Mild bilateral L4-5 foraminal narrowing with small foraminal protrusions RIGHT greater than the L EFT similar to previous. 5. Moderate facet arthropathy L3-L5. 6. No other significant changes.
== END 2023-06-13 09:01 | disposition home or self-care (01) ==
PROVIDERS: PCP Family Medicine; Visit Provider Orthopaedic Surgery
DX: M48.061 Spinal stenosis, lumbar region without neurogenic claudication (principal); M51.36 Other intervertebral disc degeneration, lumbar region; M47.817 Spondylosis without myelopathy or radiculopathy, lumbosacral region
CPT/HCPCS: 72148

== ENCOUNTER → 2023-06-15 10:10 | Outpatient (BNVA) | payer MEDICARE, SELFPAY | PROVIDERS: PCP Family Medicine; Visit Provider Orthopaedic Surgery | DX: M48.062 Spinal stenosis, lumbar region with neurogenic claudication; M51.36 Other intervertebral disc degeneration, lumbar region | CPT/HCPCS: 36415; 72100; 80053; 81001; 85025; 99214 ==

== ENCOUNTER → 2023-06-29 09:50 | Outpatient (BNVA) | payer MEDICARE, SELFPAY | PROVIDERS: PCP Family Medicine; Visit Provider Family Medicine | DX: Z01.818 Encounter for other preprocedural examination (principal); R31.0 Gross hematuria | CPT/HCPCS: 80053; 81003; 85025; 87086 ==

== ENCOUNTER 2023-07-24 17:01 | Inpatient (IN) | payer MEDICARE, SELFPAY ==
[2023-07-24] VITALS (16 sets, daily range): BP systolic 99–175; BP diastolic 61–95; PULSE 67–84; RESP 16–81; TEMP 36.2–37.3; O2SAT 90–97; BMI 45.1
--- NOTE | 2023-07-24 | XR_ITS ---
WS: [id number] Lumbar spine, C ARM fluoroscopy views, 07/24/2023 Clinical Data: or pic, L2-pelvis fusion Comparison: Lumbar spine, 05/16/2023 Findings: Dr. Monterroso performed a posterior lumbosacral fusion. Impression: Posterior lumbosacral fusion.
[2023-07-24] MEDS: sodium chloride 0.9% 1,000 ML 30 ML IV (11:00)
[2023-07-24] MEDS: HYDROmorphone 1 mg/mL INJ 1 mL 0.5 MG IVP (11:26)
--- NOTE | 2023-07-24 12:38 | W.PM.OPSUD ---
Surgery/Procedure H&P Update DATE OF PROCEDURE: July 24, 2023 DATE H&P PERFORMED: 06/29/22 H&P UPDATE INFORMATION: I have reviewed H&P completed within last 30 days, I have examined patient prior to procedure and No changes to prior documentation PREOP DIAGNOSIS: Laminectomy Syndrome, DDD Lumbar PLANNED PROCEDURE: Operation Date: 07/24/23 12:20 Proposed Procedures p Spinal Fusion PSF(Not Applicable) - Saw Monterroso DO s Posterior Lumbar Interbody Fusion PLIF(Not Applicable) - DO eloy Coelho Sacroiliac Joint Fusion SI Joint Fusion(Not Applicable) - Saw Monterroso DO
--- NOTE | 2023-07-24 12:38 | ANES.PREANE2 ---
Pre-Anesthetic Assessment Height/Weight: Height 1.63 m Weight 119.295 kg Temp Pulse Resp BP Pulse Ox O2 Del Method 97.4 F L 67 17 175/95 95 Room Air 07/24/23 10:30 07/24/23 10:30 07/24/23 11:26 07/24/23 10:30 07/24/23 11:26 07/24/23 10:30 Preop Diagnosis: Laminectomy Syndrome, DDD Lumbar Operation Date: 07/24/23 12:20 Proposed Procedures p Spinal Fusion PSF(Not Applicable) - Saw Monterroso DO s Posterior Lumbar Interbody Fusion PLIF(Not Applicable) - Saw Monterorso DO s Sacroiliac Joint Fusion SI Joint Fusion(Not Applicable) - Saw Monterroso DO Familial anesthetic complications: none Was Beta Joann taken within 24 hours: N/A Was Clonidine taken within 24 hours: N/A Social No alcohol and No tobacco Exam alert, oriented x 3, clear to auscultation bilaterally and regular rate & rhythm Airway Submandibular: within normal limits Cervical ROM: within normal limits Mallampati: Class II Dentition: full CV/HEM Hypertension GI Gastroesophageal Reflux Disease Metabolic Hyperlipidemia and Morbid Obesity [facility] [place] Lower Back Pain and Osteoarthritis/DJD Neuropsych Anxiety and Depression Anesthetic Plan ASA status: 3 Anesthesia: General Medications/Allergies Home Medications Medication Instructions Recorded Confirmed Last Taken Type atorvastatin 10 mg tablet (Lipitor) 10 mg PO DAILY 05/19/20 07/24/23 07/23/23 08:00 History fluoxetine 40 mg capsule (Prozac) 40 mg PO DAILY 05/19/20 07/24/23 07/23/23 08:00 History folic acid 1 mg tablet 1 mg PO DAILY 05/19/20 07/24/23 07/23/23 08:00 History lisinopril 10 mg tablet 20 mg PO DAILY 05/19/20 07/24/23 07/23/23 08:00 History methotrexate sodium 2.5 mg tablet 20 mg PO Q7D 05/19/20 07/21/23 07/21/23 History pantoprazole 40 mg tablet,delayed 40 mg PO DAILY 05/19/20 07/24/23 07/23/23 08:00 History release (Protonix) fluoxetine 20 mg capsule (Prozac) 20 mg PO DAILY 12/30/21 07/24/23 07/24/23 08:00 History tizanidine 4 mg tablet 4 mg PO Q6H PRN muscle spasticity 03/11/23 07/24/23 07/23/23 08:00 Rx #20 tabs diclofenac sodium 75 mg 75 mg PO BID 06/29/23 07/21/23 07/18/23 History tablet,delayed release Allergies Allergy/AdvReac Type Severity Reaction Status Date / Time No Known Allergies Allergy Verified 07/24/23 10:23 Current Medications Generic Name Dose Route Start Last Admin Trade Name Freq PRN Reason Stop Dose Admin Sodium Chloride 1,000 mls @ 30 mls/hr 07/24/23 10:30 07/24/23 11:00 Sodium Chloride 0.9% IV 07/25/23 10:29 30 mls/hr .Q24H CHON Administration PFSH Anesthesia Medical History Cystitis Family History Mother Cancer Bleeding disorder Social History Smoking and tobacco/nicotine status: current every day tobacco/nicotine user cigarettes Packs smoked per day: 0.5 Alcohol intake: never Substance/Drug Use: never Marital status: Current occupational status: disabled Data Anesthesia Cardiac Studies: No Data to Display
[2023-07-24] MEDS: ceFAZolin 2,000 MG in sodium chloride 0.9% (plus) 50 ML 100 MG IV ×2 (13:18→19:59)
[2023-07-24] MEDS: vancomycin 1,000 MG SDV 1000 MG XX (13:48)
[2023-07-24] MEDS: lidocaine-epi 2% 20 mL INJ INJECTION (13:48)
[2023-07-24] MEDS: heparin, porcine 1,000 unit/mL INJ 10 mL 10000 UNIT IRRIGATION (14:00)
--- NOTE | 2023-07-24 16:41 | PM.OP ---
Operative Report Date of procedure: July 24, 2023 Pre-op diagnosis: Lumbar stenosis with neurogenic claudication Post-op diagnosis: same Procedure done: 1.?L5/S1 interbody fusion with posterolateral fusion 2. Cage at L5/S1 3. Posterior fusion L2-pelvis 4.? Instrumentation L2-S1 5.? Lumbopelvic instrumentation 6. open right Sacral iliac fusion 7. open left sacral iliac fusion 8. L4/5 laminectomy with partial facetectomy 9. L5/S1 laminectomy with partial facetectomy 10. use of computer navigation / stereotactic spine 11. use of autograft from same incision 12. allograft 13. Bone marrow aspirate from right iliac crest Surgeon: Saw Monterroso DO Apprentice Painter Brush: Olivier Saleh Apprentice Painter Brush: The surgical product sales consultant, Olivier Saleh, KAMALA was needed for his expertise under the microscope. He was important and necessary throughout the procedure to complete in a safe and timely manner. He assisted with patient positioning prepping and draping tissue retraction suctioning of the operative field protection of the dural sac and tissue closure Estimated blood loss (mL): 300 Procedure: 1.?L5/S1 interbody fusion with posterolateral fusion 2. Cage at L5/S1 3. Posterior fusion L2-pelvis 4.? Instrumentation L2-S1 5.? Lumbopelvic instrumentation 6. open right Sacral iliac fusion 7. open left sacral iliac fusion 8. L4/5 laminectomy with partial facetectomy 9. L5/S1 laminectomy with partial facetectomy 10. use of computer navigation / stereotactic spine 11. use of autograft from same incision 12. allograft 13. Bone marrow aspirate from right iliac crest Patient is brought to the operative suite.? After undergoing anesthesia, the patient had neuro monitoring attached.? Patient was then placed in the prone position on the Stanislav table.? All areas of impingement were well-padded.? Patient was then prepped and draped in the normal sterile fashion.? Skin incision was then made over the L2 to the sacrum.? Subperiosteal dissection was made out to the transverse processes of?L4 bilaterally L5 bilaterally and sacral ala bilaterally.? The [employer] bone marrow aspirate kit was used to aspirate bone marrow aspirate.? This was done by using the sharp probe to open up the bone.? Aspiration was performed and then the blunt probe was then used to dissect down to through the bone tunnel.? An aspirating well drawn back a millimeter approximately 20 cc of bone marrow aspirate was used.? Admixed with the allograft and autograft bone that will be used. Next tension was brought to placing the fiducial for the computer navigation.? 2 pins were placed into the right iliac crest.? The fiducial was attached.? The C-arm was brought in and information from the C arm was then linked to the computer used for placing the screws.? Next attention was brought to placing the pedicle screws.? This was done by using the gearshift probe.? The probe was used to identify the pedicle.? Then the pedicle feeler was used followed by placement of screw.? This was done at? L4 bilaterally, L5 bilaterally and S1 bilaterally. Next attension was brought to placing the iliac screws.? This was done using the sacral ala iliac technique.? The gearshift probe linked to computer navigation was then placed through the sacral ala into the sacroiliac joint into the iliac crest.? Next the pedicle feeler was used followed by the computer navigated tap.? And then the screw was passed a 80 mm screw was placed on the right side and a 80 mm screw was placed on the left side.? Both the screws were 9.5 mm in diameter. Next attension was brought to performing the open and sacral iliac fusion.? This was done by again using the gearshift probe linked to computer navigation.? Followed by pedicle feeler followed by placing a wire and then the drill drilled over the wire and then bone graft was packed into the sacroiliac joint and into the drill hole.? And the sacroiliac screw was then placed.? This technique was done on both the right and left side. Next attention was brought to performing the laminectomy of L4.? This was done using the high-speed bur Kerrisons and curettes.? Once the lamina was removed and then attention was brought to performing a partial facetectomy on the contralateral side.? This was done again using the high-speed bur curettes and Kerrisons.? The ligamentum flavum was taken down bilaterally from L4 to L5.? Attention was then brought to the facet on the ipsilateral side.? The facet was taken down.? The L5 nerve was decompressed as it passed around the L5 pedicle.? The laminectomy was done for purposes of decompressing the nerve as well as placement of the cage.? The L4 nerve was identified as it traversed through the L4/5 foramen.? The L5 nerve was traced around the L5 pedicles bilateral.? The scar tissue was pulled off the dura.? There was found to be in good repair. Next attention was brought to performing the laminectomy ofL5.? This was done using the high-speed bur Kerrisons and curettes.? Once the lamina was removed and then attention was brought to performing a partial facetectomy on the contralateral side.? This was done again using the high-speed bur curettes and Kerrisons.? The ligamentum flavum was taken down bilaterally from L5 to S1.? Attention was then brought to the facet on the ipsilateral side.? The facet was taken down.? The S1 nerve was decompressed as it passed around the S1 pedicle.? The laminectomy was done for purposes of decompressing the nerve as well as placement of the cage.? The L5 nerve was identified as it traversed through the L5/S1 foramen.? The thecal sac was identified and retracted.? The L5/S1 disc base was identified.? Using a knife the disc base was opened.? And then sequential harry were placed.? The first shaver was a 6 and the last shaver was a 9.? Using a pituitary and down going curette the endplates were scraped and disc material was removed from the space.? Once adequate decompression of the disc base was felt to be had.? Osteoamp sponge was packed into the anterior aspect of the disc base.? Then a size 10 cage from [employer] was placed after packing osteoamp into the cage.? While placing the cage the thecal sac and L[] nerve was protected.? C arm was used to ensure that the cages placed in the appropriate position. Attention was then brought to attaching the rods to the screws placed in the L2 bilaterally, L3 bilaterally, L4 bilaterally, L5 bilaterally and S1 bilaterally.? This was then attached to the sacroiliac screw providing the lumbopelvic fixation.? Caps were torqued into position. Locking the construct in place. Wound was copiously irrigated and then attention was brought to decorticating the facets and transverse processes laterally.? Bone that was taken down from the lamina was used along with osteoamp fibers and sponges were packed into the lateral gutters along the facet joints.? This was done bilaterally. Wound was then closed in a layered fashion starting with the thoracolumbar fascia.? 0-vicryl was used the sub cutaneous tissue was closed with 2-0 vicryl and skin with 4-0 monocryl.? Glue was then used to seal the skin and a steril dressing was applied.? Patient was then placed in the supine position. The endotracheal tube was removed and patient was transferred to the PACU in stable condition.
--- NOTE | 2023-07-24 16:59 | ANE.PACU2 ---
Inpatient post-anesthesia follow up: Airway intact: Yes Vital signs: Temperature 97.4 F Pulse Rate 67 Respiratory Rate 17 Blood Pressure 175/95 Pulse Oximetry 95 Oxygen Delivery Me thod Room Air Oxygen Flow Rate 6 Fraction of Inspir ed Oxygen Hydration adequate: Yes Pain level: 3 Mental status: Altered (sedate)
[2023-07-24] MEDS: lactated ringers 1,000 ML 90 ML IV (18:10)
[2023-07-24] MEDS: docusate sodium 100 mg Capsule PO (18:10)
[2023-07-24] MEDS: HYDROcodone-acetaminophen 10-325 mg Tablet PO (19:59)
[2023-07-25] VITALS (7 sets, daily range): BP systolic 100–140; BP diastolic 54–86; PULSE 82–101; RESP 17–18; TEMP 36.4–37.1; O2SAT 90–94
[2023-07-25] MEDS: HYDROcodone-acetaminophen 10-325 mg Tablet PO ×3 (05:11→20:12)
[2023-07-25] MEDS: lactated ringers 1,000 ML 90 ML IV ×2 (05:11→17:28)
[2023-07-25] MEDS: ceFAZolin 2,000 MG in sodium chloride 0.9% (plus) 50 ML 100 MG IV ×2 (05:11→12:45)
--- NOTE | 2023-07-25 07:26 | PM.PN ---
Subjective Subjective: POD 1 Patient resting comfortably. Reports mild back pain leg pain has improved. Denies shortness of breath, chest pain, headaches. Vitals/I&O/Wt Last Vital Signs Temp 97.6 F 07/25/23 04:00 Pulse 97 07/25/23 04:00 Resp 18 07/25/23 04:00 BP 140/86 07/25/23 04:00 Pulse Ox 90 07/25/23 04:00 O2 Del Method Room Air 07/24/23 18:49 O2 Flow Rate 2 07/24/23 20:10 07/24/23 07/25/23 07/25/23 22:59 06:59 14:59 Intake Total 2140 / 2190 1041.5 / 3231.5 Output Total 650 / 650 775 / 1425 Balance 1490 / 1540 266.5 / 1806.5 Weight last 48 hrs Weight 263 lb Physical Exam Narrative: Patient presents alert and oriented x3 with a good general appearance normal mood and affect. Normal coordination normal stability. Mild tenderness around the incisional site with the incision appear to be clean and dry with Hemovac drain intact. No signs of erythema or drainage. No signs of infection. Patient denies any fevers or chills. 5/5 motor strength both lower extremities with negative straight leg raise bilaterally. Calves are supple no medial thigh tenderness. Pulses are 2+ at the dorsalis pedis and posterior tibial region. Good capillary refill throughout normal sensation light touch both lower extremities. Urinary Catheter Management: Quinteros: Cath Placed During This Visit: yes Reason for Continuing Indwelling Catheter: Other Urinary Catheter Date of Insertion: 07/24/23 Urinary Catheter Time of Insertion: 13:30 A&P Assessment and plan (1) Status post lumbar spinal fusion: Physical therapy to evaluate and mobilize. She had 525 mL out of her Hemovac drain. We will keep the drain today. Discontinue Quinteros catheter. Continue incentive spirometer for pulmonary toilet. Patient is high risk of bleeding will continue SCDs for mechanical DVT prophylaxis. Hopeful discharge home tomorrow. Attestations Medical Necessity Statement*: Hopeful discharge home tomorrow Coding Level of Care Code Acute Code for Chg Fwd Diagnoses Status post lumbar spinal fusion Z98.1
[2023-07-25] MEDS: lisinopril 20 mg Tablet PO (08:43)
[2023-07-25] MEDS: fluoxetine 20 mg Capsule PO (08:44)
[2023-07-25] MEDS: atorvastatin 40 mg Tablet 20 MG PO (08:44)
[2023-07-25] MEDS: docusate sodium 100 mg Capsule PO ×2 (08:44→17:28)
[2023-07-25] MEDS: fluoxetine 20 mg Capsule 40 MG PO (08:44)
[2023-07-25] MEDS: pantoprazole DR 40 mg Tablet PO (08:44)
[2023-07-25] MEDS: folic acid 1 mg Tablet PO (08:44)
--- NOTE | 2023-07-25 10:10 | PC.CHAP ---
Pastoral Care Encounter/Spiritual Assessment Type of Contact [] Declined xray tech visit [] Patient/Family/Request visit [] Outpatient visit [] Follow-up visit [] Physician referral [] Code/Alert [x] Routine visit [] Staff referral [] Actively dying [] Patient sleeping [] Family support [] [] Out of room [] Palliative care [] [] Receiving care in room [] Pre-surgical visit [] Trauma [] Long length of stay [] ICU visit [] Other: Relational/Emotional Strength [x] Patient feels connected with others/family/visitors/staff [] Distress [] Loneliness/isolation [] Abandonment Spirituality of Patient [x] Person of [place] [] Attends Orthodoxy of their [place] [x] Believes in Prayer [] Reads Bible or Jewish materials [] There are Spiritual issues to be addressed Aids Counselor Interventions [x] Prayer [x] Active listening [] Non-anxious presence [x] Spiritual/emotional support [] Crisis/trauma care [] Spiritual counseling [] Bereavement support [] Provided bereavement packet [] Provided Bible/devotional materials [] Provided toy/stuffed animal, coloring book to patient or family member [] Provided Communion [] Anointing/[place] [] Salvation [x] Completed spiritual assessment [] Other: Impact on Illness or Injury [] Angry [] Fearful [] Anxious [] Often cries [] Exhaustion [] Unable to work [] Unable to attend mandaeism [] Unable to walk/stand [] Unable to read [] Unable to drive [] Unable to eat/drink [] Unable to sleep [] Unable to be with family [] Patient intubated [] Other: Summary Time spent with patient 5 min
[2023-07-25 10:13] LABS: Hematocrit 36.1 % (36-47)
[2023-07-26 03:48] VITALS: BP 128/72; PULSE 89; RESP 16; TEMP 37.1; O2SAT 91
[2023-07-26] MEDS: lactated ringers 1,000 ML 90 ML IV (05:25)
--- NOTE | 2023-07-26 06:35 | P.PN_ITS ---
Subjective Subjective: POD 2 Patient sitting up in the chair with improvement of her leg pain. Denies any chest pain, shortness of breath or headaches. Vitals/I&O/Wt Last Vital Signs Temp 98.8 F 07/26/23 03:48 Pulse 89 07/26/23 03:48 Resp 16 07/26/23 03:48 BP 128/72 07/26/23 03:48 Pulse Ox 91 07/26/23 03:48 O2 Del Method Room Air 07/26/23 03:48 O2 Flow Rate 2 07/25/23 20:00 07/25/23 07/25/23 07/26/23 14:59 22:59 06:59 Intake Total 170 / 170 1720 / 1890 1000 / 2890 Output Total 425 / 425 200 / 625 Balance -255 / -255 1720 / 1465 800 / 2265 Weight last 48 hrs Weight 263 lb Physical Exam Narrative: Patient presents alert and oriented x3 with a good general appearance normal moo d and affect. Normal coordination normal stability. Mild tenderness around the incisional site with the incision appear to be Clean and dry with Hemovac drain intact. No signs of erythema or drainage. No signs of infection. Patient denies any fevers or chills. 5/5 motor strength both lower extremities with negative straight leg raise bilaterally. Calves are supple no medial thigh tenderness. Pulses are 2+ at the dorsalis pedis and posterior tibial region. Good capillary refill throughout normal sensation light touch both lower extremities. Urinary Catheter Management: Quinteros: Cath Placed During This Visit: yes, but has since been removed by the nurse Reason for Continuing Indwelling Catheter: Decision to DC Catheter Urinary Catheter Date of Insertion: 07/24/23 Urinary Catheter Time of Insertion: 13:30 Date Urinary Catheter Removed: 07/25/23 Time Urinary Catheter Discontinued: 09:47 Data 07/25/23 10:00 A&P Assessment and plan (1) Status post lumbar spinal fusion: Discontinue Hemovac drain with dressing change applying a new Silverlon dressing. Continue incentive spirometer at home. Discharge home later this morning. Have her follow-up in the office in 1 week's time for wound check. Valium and hydrocodone sent in for patient postoperative control. Attestations Medical Necessity Statement*: Discharge home today Coding Level of Care Code Acute Code for Chg Fwd Diagnoses Status post lumbar spinal fusion Z98.1
[2023-07-26 07:39] VITALS: BP 127/84; PULSE 85; RESP 18; TEMP 36.9; O2SAT 90
[2023-07-26] MEDS: lisinopril 20 mg Tablet PO (08:02)
[2023-07-26] MEDS: docusate sodium 100 mg Capsule PO (08:02)
[2023-07-26] MEDS: folic acid 1 mg Tablet PO (08:02)
[2023-07-26] MEDS: fluoxetine 20 mg Capsule 40 MG PO (08:02)
[2023-07-26] MEDS: atorvastatin 40 mg Tablet 20 MG PO (08:02)
[2023-07-26] MEDS: fluoxetine 20 mg Capsule PO (08:02)
[2023-07-26] MEDS: pantoprazole DR 40 mg Tablet PO (08:02)
[2023-07-26] MEDS: HYDROcodone-acetaminophen 10-325 mg Tablet PO (08:03)
--- NOTE | 2023-07-26 08:42 | PC.NURSE ---
Drain d/c per dr order. site was clear of s/s of infection, optifoam placed over site.
--- NOTE | 2023-07-27 13:08 | PM.DCS ---
Discharge Providers Date of Admission: 07/24/23 17:01 Date of Discharge: July 26, 2023 Attending Provider at Admission: Saw Monterroso DO Attending Provider at Discharge: Saw Monterroso DO Primary Care Provider: Puneet Corona MD Diagnoses at Discharge Discharge Diagnosis (1) Status post lumbar spinal fusion: Status: Acute Reason for Visit Reason for Visit: Fusion Physical Exam Urinary Catheter Management: Quinteros: Cath Placed During This Visit: yes, but has since been removed by the nurse Reason for Continuing Indwelling Catheter: Decision to DC Catheter Urinary Catheter Date of Insertion: 07/24/23 Urinary Catheter Time of Insertion: 13:30 Date Urinary Catheter Removed: 07/25/23 Time Urinary Catheter Discontinued: 09:47 Discharge Data Studies Completed and Pending Completed Studies During Hospitalization Category Date Time Status XR lumbar spine 2-3V* 75533 Routine Exams 07/24/23 Completed Pending at discharge Category Date Time Status C-arm Fluoroscopy [id number] Routine Exams 07/24/23 10:18 Taken Laboratory Results Hgb 11.40 g/dL (11.27-16.99) 07/25/23 10:00 Hct 36.1 % (36-47) 07/25/23 10:00 Vitals Last Vital Signs Temp 98.5 F 07/26/23 07:39 Pulse 85 07/26/23 07:39 Resp 18 07/26/23 07:39 BP 127/84 07/26/23 07:39 Pulse Ox 90 07/26/23 07:39 O2 Del Method Room Air 07/26/23 07:39 O2 Flow Rate 2 07/25/23 20:00 Discharge Plan Discharge Patient Disposition: Home Health Service Condition: Stable Prescriptions: New hydrocodone-acetaminophen 10-325 mg Tablet 1 tab PO Q4H PRN (Reason: Post Operative Pain) Qty: 30 0RF Valium 5 mg tablet 5 mg PO Q8H PRN (Reason: muscle spasm) Qty: 30 0RF Continued fluoxetine [Prozac] 40 mg Capsule 40 mg PO DAILY Rx Instructions: Take 40 mg orally with 20 mg orally to equal 60 mg once daily atorvastatin [Lipitor] 10 mg Tablet 10 mg PO DAILY methotrexate sodium 2.5 mg Tablet 20 mg PO Q7D Rx Instructions: On Fridays pantoprazole [Protonix] 40 mg Tablet,Delayed Release (Dr/Ec) 40 mg PO DAILY lisinopril 10 mg Tablet 20 mg PO DAILY folic acid 1 mg Tablet 1 mg PO DAILY tizanidine 4 mg tablet 4 mg PO Q6H PRN (Reason: muscle spasticity) Qty: 20 0RF Rx Instructions: do not exceed 3 doses per 24 hrs fluoxetine [Prozac] 20 mg Capsule 20 mg PO DAILY Rx Instructions: Take 20 mg orally with 40 mg orally to equal 60 mg once daily Held diclofenac sodium 75 mg tablet,delayed release (DR/EC) 75 mg PO BID Hold Instructions: Resume on 08/25/23. Discharge Orders: Discharge Order (Routine); Ordered 07/26/23 Ordered By: Olivier Saleh Other Ambulatory Orders: DME: Walker (Order) Location: None Selected Ordered By: Saw Monterroso Referrals: [facility] ([facility]) [Outside] Saw Monterroso DO [Physician] - 08/08/23 11:00 am () Puneet Corona MD [Primary Care Provider] - 08/01/23 1:20 pm Discharge Diet: Advance as tolerated Discharge Activity: Limit activity as instructed Patient Instructions: Hydrocodone/Acetaminophen (By mouth), Diazepam (By mouth), Lumbar Spinal Fusion (GEN), Opioid Safety Activity Restrictions/Additional Instructions: Thank you for choosing [facility] for your care! The following is a list of instructions, from your provider, to follow upon your discharge to ensure you have the optimal recovery from your recent injury or surgery. Follow-up care is a le[place] part of your treatment and safety. Be sure to make and go to all appointments and call your doctor if you are having problems. If you do not already have a follow-up appointment made, call Dr. Monterroso's] office in the next 1-3 days to make follow up appointment for [1-2] weeks at [phone]. It is also a good idea to know your test results and keep a list of the medicines you take. Medications will be prescribed for you at your provider's discretion. These medications are to be used as instructed; if they are taken more often that prescribed they will not be refilled early and in most cases will not be refilled at all. > When a refill is needed, you should contact pedro smith 2-3 business days before your prescription runs out. Medications will NOT be refilled by events solutions consultant providers after hours! > Many pain medications contain Tylenol (Acetaminophen). Do not consume more than 4,000 mg of Tylenol per day in total with any combination of medications. > Pain medications can cause constipation. Please use an over the counter stool softener as directed, while taking pain medications. Consult your local pharmacist with questions or recommendations on stool softeners. If constipation persists, contact our office or your primary care provider. > While under our care, you are not to receive pain medications or other controlled substances from any other provider unless our office is notified and approves. Any attempts to do so will result in refusal to prescribe any further pain medications and possible dismissal from our practice. ? Walking is essential for the healing process after surgery. We would like you to slowly advance your walking. This should be done on relatively flat clear ground (inside or out) or can be done on a treadmill. Remember this goal does not have to happen all at once, slowly increase your distance and duration. This can be broken into more more than one walk per day as tolerated. Patients who walk as directed after surgery rarely require Physical Therapy. In the unlikely event this issue arises your provider will direct hospital staff to make the appropriate arrangements. ? No lifting over 5 pounds {a gallon of milk) or bending/twisting until further notice. Each of these activities places an unnecessary amount of stress onto the body and can impede the delicate healing process. > Instead of bending at the waist, keep your back straight and bend at the knees. > Instead of twisting your torso, keep your back straight and turn your entire body with your feet. ? You may sleep in any position which makes you comfortable. Many patients find comfort sleeping in a reclining chair. It is not abnormal to have difficulty sleeping for the first several weeks following your surgery. We recommend trying Benadry! or Tylenol PM as directed to help with your sleeping difficulties. Both medications are over the counter and available without prescription. ? NO SMOKING!!! Smoking dramatically increases the probability of developing postoperative wound infections. ? Common complaints after lumbar and/or thoracic spine surgery include, but are not limited to: numbness and/or tingling in the legs, pain around the incision and surrounding tissues, muscle spasms, or stiffness of the middle to low back. Contact our office if these symptoms persist or if an acute change occurs. ? No driving for the first 3-5days, and not while taking narcotics until seen at your follow-up appointment and cleared. There are no restrictions for riding on short trips, however if you take a longer trip, arrangements should be made to make regular stops to get out of the vehicle and stretch . ? Swelling is an unfortunate event that will take place with any surgery and is the primary source of your postoperative discomfort. While walking and regular approved activities helps control inflammation, there are additional steps you can take to minimize swelling. > Place ice over the surgical site and surrounding tissue for twenty minutes, followed by applying a low/medium heat (heating pad) for an additional twenty minutes every 1-2 hours as needed for painrelief. > You may use of over the counter anti-inflammatory medications (Ibuprofen, Motrin, Aleve, Advil, etc) as directed on the package label. These types of medicines will significantly reduce the amount of discomfort you experience after surgery from swelling. It should be noted that if you have and allergy to any of these medications, or a history of ulcers or kidney disease you should consult you primary care provider prior to starting these medications. Discharge Attestations Time Spent in Discharge Care*: less than 30 min Quality Metrics Clinical Quality Measures [ No reported AMI, CVA or VTE this stay] Coding Level of Care Code Acute Code for Chg Fwd Diagnoses Status post lumbar spinal fusion Z98.1
== END 2023-07-26 10:15 | disposition home health service (06) | DRG 454 ==
LOC: MEDSURG 18:58
PROVIDERS: Admitting Provider Orthopaedic Surgery; PCP Family Medicine; Visit Provider Orthopaedic Surgery
PROC: 0SG30AJ Fusion of Lumbosacral Joint with Interbody Fusion Device, Posterior Approach, Anterior Column, Open Approach (ICD-10-PCS; principal; 2023-07-24 11:50)
PROC: 0SG30AJ Fusion of Lumbosacral Joint with Interbody Fusion Device, Posterior Approach, Anterior Column, Open Approach (ICD-10-PCS; CPT 22612; 2023-07-24 11:50)
PROC: 0SG30AJ Fusion of Lumbosacral Joint with Interbody Fusion Device, Posterior Approach, Anterior Column, Open Approach (ICD-10-PCS; CPT 27280; 2023-07-24 11:50)
DX: M48.062 Spinal stenosis, lumbar region with neurogenic claudication (principal); Z68.42 Body mass index [BMI] 45.0-49.9, adult; K21.9 Gastro-esophageal reflux disease without esophagitis; E78.5 Hyperlipidemia, unspecified; E66.01 Morbid (severe) obesity due to excess calories; F41.9 Anxiety disorder, unspecified; F32.A Depression, unspecified; F17.210 Nicotine dependence, cigarettes, uncomplicated
CPT/HCPCS: 36415; 36592; 51702; 72100; 76000; 85014; 85018; 97116; 97161; 97530; C1713; J0330; J0690; J1100; J1170; J1644; J2250; J2405; J2704; J2710; J3010; J3370; J3490; J7030; J7120

== ENCOUNTER → 2023-08-08 11:17 | Outpatient (BNVA) | payer MEDICARE, SELFPAY | PROVIDERS: PCP Family Medicine; Visit Provider Physician Assistant | DX: Z47.89 Encounter for other orthopedic aftercare (principal) | CPT/HCPCS: 72100; 99024 ==

== ENCOUNTER → 2023-09-05 09:02 | Outpatient (BNVA) | payer MEDICARE, SELFPAY | PROVIDERS: PCP Family Medicine; Visit Provider Physician Assistant | DX: Z98.1 Arthrodesis status (principal); Z47.89 Encounter for other orthopedic aftercare | CPT/HCPCS: 72100; 99024 ==

== ENCOUNTER → 2023-10-17 09:54 | Outpatient (BNVA) | payer MEDICARE, SELFPAY | PROVIDERS: PCP Family Medicine; Visit Provider Orthopaedic Surgery | DX: Z98.1 Arthrodesis status (principal); Z47.89 Encounter for other orthopedic aftercare; M16.0 Bilateral primary osteoarthritis of hip; Z46.89 Encounter for fitting and adjustment of other specified devices | CPT/HCPCS: 72100; 97760; 99024; L0637 ==

== ENCOUNTER 2023-10-17 10:49 | Outpatient (CLI) | payer MEDICARE, SELFPAY | END 2023-10-17 10:50 | disposition home or self-care (01) | LOC: SPT 10:49 | PROVIDERS: PCP Family Medicine; Visit Provider Orthopaedic Surgery | DX: Z46.89 Encounter for fitting and adjustment of other specified devices (principal); Z98.1 Arthrodesis status | CPT/HCPCS: 97760; L0637 ==

== ENCOUNTER → 2023-11-13 07:43 | Outpatient (BNVA) | payer MEDICARE, SELFPAY | PROVIDERS: PCP Family Medicine; Referring Provider Orthopaedic Surgery; Visit Provider Specialist | DX: M16.0 Bilateral primary osteoarthritis of hip | CPT/HCPCS: 73523; 99204 ==

== ENCOUNTER → 2023-11-21 08:19 | Outpatient (BNVA) | payer MEDICARE, SELFPAY | PROVIDERS: PCP Family Medicine; Visit Provider Orthopaedic Surgery | DX: M54.50 Low back pain, unspecified (principal); Z98.1 Arthrodesis status | CPT/HCPCS: 72100; 99213 ==

== ENCOUNTER → 2023-12-25 08:02 | Outpatient (BNVA) | payer MEDICARE, SELFPAY | PROVIDERS: PCP Family Medicine; Visit Provider Specialist | DX: M70.61 Trochanteric bursitis, right hip (principal); M70.62 Trochanteric bursitis, left hip | CPT/HCPCS: 99213 ==

== ENCOUNTER → 2024-05-21 07:50 | Outpatient (BNVA) | payer MEDICARE, SELFPAY | PROVIDERS: PCP Family Medicine; Visit Provider Orthopaedic Surgery | DX: Z98.1 Arthrodesis status (principal) | CPT/HCPCS: 72100; 99213 ==

== ENCOUNTER 2024-05-31 07:53 | Outpatient (CLI) | payer MEDICARE, MEDICAID, SELFPAY ==
--- NOTE | 2024-05-31 07:56 | MM_ITS ---
WS: [id number] BILATERAL SCREENING DIGITAL TOMOSYNTHESIS MAMMOGRAM WITH CAD HISTORY: SCREEN COMPARISON: 04/20/2022, 04/01/2020 Bilateral CC and MLO views with tomosynthesis and synthetic mammography submitted. Computer aided det ection analyzed. Breast composition: There are scattered areas of fibroglandular density. No suspicious masses, microc alcifications or architectural distortion. Benign calcifications. MM/[place] [id number] IMPRESSION: BI-RADS: 2 - Benign. FOLLOW UP: 1 Year Follow-up
== END 2024-05-31 07:54 | disposition home or self-care (01) ==
LOC: RAD 07:54
PROVIDERS: PCP Family Medicine; Visit Provider Family Medicine
DX: Z12.31 Encounter for screening mammogram for malignant neoplasm of breast (principal); R92.323 Mammographic fibroglandular density, bilateral breasts; R92.1 Mammographic calcification found on diagnostic imaging of breast
CPT/HCPCS: 77063; 77067

== ENCOUNTER → 2024-07-25 07:53 | Outpatient (BNVA) | payer MEDICARE, MEDICAID, SELFPAY | PROVIDERS: PCP Family Medicine; Visit Provider Orthopaedic Surgery | DX: Z98.1 Arthrodesis status (principal) | CPT/HCPCS: 72100; 99213 ==

== ENCOUNTER → 2024-10-09 09:59 | Outpatient (BNVA) | payer MEDICARE, MEDICAID, SELFPAY | PROVIDERS: PCP Family Medicine; Referring Provider Family Medicine; Visit Provider Nurse Practitioner Family | DX: D22.39 Melanocytic nevi of other parts of face (principal); S00.501A Unspecified superficial injury of lip, initial encounter; X58.XXXA Exposure to other specified factors, initial encounter; L30.4 Erythema intertrigo; L57.3 Poikiloderma of Civatte; L82.1 Other seborrheic keratosis | CPT/HCPCS: 99204 ==

== ENCOUNTER → 2024-10-24 08:01 | Outpatient (BNVA) | payer MEDICARE, MEDICAID, SELFPAY | PROVIDERS: PCP Family Medicine; Visit Provider Orthopaedic Surgery | DX: Z98.1 Arthrodesis status (principal) | CPT/HCPCS: 99213 ==

== ENCOUNTER 2025-02-27 08:36 | Outpatient (CLI) | payer MEDICARE, MEDICAID, SELFPAY ==
--- NOTE | 2025-02-27 08:45 | USCV_ITS ---
JonesCalos Age: 64 Gender: F : 1960 Exam Date: 02/27/2025 09:13 Ordering Phys: Dalila Purcell MD Technologist: [facility] Exam Location: [facility] Indication: swelling HISTORY: Lower extremity swelling. PROCEDURES: Venous duplex imaging was performed in only the right lower extremity. The following venous structures were evaluated: common femoral vein, profunda vein, proximal portion of the greater saphenous vein, superficial femoral vein, and the popliteal vein. In addition, the posterior tibial and peroneal trunk were evaluated. FINDINGS: No evidence of DVT seen in any vessel visualized at this time. CONCLUSIONS No evidence of right lower extremity DVT. Main Gutierrez MD (Electronically Signed) Final Date: 27 February 2025 11:41 S
== END 2025-02-27 08:37 | disposition home or self-care (01) ==
PROVIDERS: PCP Family Medicine; Visit Provider Family Medicine
DX: M79.604 Pain in right leg (principal)
CPT/HCPCS: 93971

== ENCOUNTER → 2025-03-18 08:36 | Outpatient (BNVA) | payer MEDICARE, MEDICAID, SELFPAY | PROVIDERS: PCP Family Medicine; Visit Provider Orthopaedic Surgery | DX: M54.50 Low back pain, unspecified (principal); M48.062 Spinal stenosis, lumbar region with neurogenic claudication; Z01.818 Encounter for other preprocedural examination; Z98.1 Arthrodesis status; T84.84XA Pain due to internal orthopedic prosthetic devices, implants and grafts, initial encounter; X58.XXXA Exposure to other specified factors, initial encounter | CPT/HCPCS: 36415; 72110; 80053; 81001; 85025; 99214 ==

== ENCOUNTER 2025-03-26 07:55 | Inpatient (IN) | payer MEDICARE, MEDICAID, SELFPAY ==
[2025-03-26] VITALS (13 sets, daily range): BP systolic 137–173; BP diastolic 73–126; PULSE 66–78; RESP 16–17; TEMP 36.2–36.4; O2SAT 90–98; BMI 43.6
--- NOTE | 2025-03-26 08:24 | W.PM.OPSUD ---
Surgery/Procedure H&P Update DATE OF PROCEDURE: March 26, 2025 DATE H&P PERFORMED: 03/18/25 H&P UPDATE INFORMATION: I have reviewed H&P completed within last 30 days, I have examined patient prior to procedure and No changes to prior documentation PREOP DIAGNOSIS: Painful orthopedic hardware in spine PLANNED PROCEDURE: Operation Date: 03/26/25 08:50 Proposed Procedures p Hardware Removal Back(Not Applicable) - Saw Monterroso, DO
--- NOTE | 2025-03-26 08:24 | ANES.PREANE2 ---
Pre-Anesthetic Assessment Height/Weight: Height 1.63 m Weight 115.212 kg Temp Pulse Resp BP Pulse Ox O2 Del Method 97.5 F L 66 17 171/126 98 Room Air 03/26/25 07:32 03/26/25 07:32 03/26/25 07:32 03/26/25 07:32 03/26/25 07:32 03/26/25 07:32 Preop Diagnosis: Painful orthopedic hardware in spine Operation Date: 03/26/25 08:50 Proposed Procedures p Hardware Removal Back(Not Applicable) - Saw Monterroso DO Familial anesthetic complications: None Was Beta Joann taken within 24 hours: N/A Was Clonidine taken within 24 hours: N/A Last intake: Intake Last Liquid Date 03/25/25 Last Liquid Time 19:00 Last Solid Date 03/25/25 Last Solid Time 19:00 Social No alcohol and No tobacco Exam alert, oriented x 3, clear to auscultation bilaterally and regular rate & rhythm Airway Mallampati: Class II Dentition: full CV/HEM Hypertension GI Gastroesophageal Reflux Disease Metabolic Morbid Obesity Anesthetic Plan ASA status: 3 Anesthesia: General Risk of > 500 ml blood loss (7ml/kg in children): No Medications/Allergies Home Medications ?Medication ?Instructions ?Recorded ?Confirmed ?Last Taken ?Type atorvastatin 10 mg tablet (Lipitor) 10 mg PO DAILY 05/19/20 03/25/25 03/25/25 History fluoxetine 40 mg capsule (Prozac) 40 mg PO DAILY 05/19/20 03/25/25 03/25/25 History folic acid 1 mg tablet 1 mg PO DAILY 05/19/20 03/25/25 03/25/25 History lisinopril 10 mg tablet 20 mg PO DAILY 05/19/20 03/25/25 03/25/25 History methotrexate sodium 2.5 mg tablet 20 mg PO Q7D 05/19/20 03/25/25 03/21/25 History pantoprazole 40 mg tablet,delayed 40 mg PO DAILY 05/19/20 03/26/25 03/26/25 History release (Protonix) fluoxetine 20 mg capsule (Prozac) 20 mg PO DAILY 12/30/21 03/25/25 03/25/25 History tizanidine 4 mg tablet 4 mg PO Q6H PRN muscle spasticity 03/11/23 03/25/25 07/23/23 08:00 Rx #20 tabs diclofenac sodium 75 mg 75 mg PO BID 06/29/23 03/25/25 03/25/25 History tablet,delayed release Held on 07/26/23. Instructions: Resume on 08/25/23. lumbar corset brace #1 ea 10/17/23 03/18/25 Unknown Rx tens until #1 ea 07/25/24 03/18/25 Unknown Rx Allergies Allergy/AdvReac Type Severity Reaction Status Date / Time No Known Allergies Allergy Verified 07/25/24 08:00 Current Medications Generic Name Dose Route Start Last Admin Trade Name Freq PRN Reason Stop Dose Admin Sodium Chloride 1,000 mls @ 30 mls/hr 03/26/25 07:30 03/26/25 07:55 Sodium Chloride 0.9% IV 03/27/25 07:29 30 mls/hr .Q24H CHON Administration PFSH Anesthesia Medical History Cystitis Family History Mother Cancer Bleeding disorder Social History Smoking and tobacco/nicotine status: current every day tobacco/nicotine user cigarettes Packs smoked per day: 0.5 Alcohol intake: never Substance/Drug Use: never Marital status: Current occupational status: disabled
[2025-03-26] MEDS: ceFAZolin 2,000 mg SDV 2000 MG IVP (08:45)
[2025-03-26] MEDS: lidocaine-epi 1% 20 mL INJ 10 ML INJECTION (09:45)
--- NOTE | 2025-03-26 09:58 | P.DS_ITS ---
Discharge Providers Date of Admission: 03/26/2025 Date of Discharge: March 26, 2025 Attending Provider at Discharge: Saw Monterroso DO Primary Care Provider: Puneet Corona MD Reason for Visit Reason for Visit: T84.84XA Discharge Data Studies Completed and Pending Pending at discharge Category Date Time Status C-arm Fluoroscopy 13313 Routine Exams 03/26/25 07:20 Ordered Vitals Last Vital Signs Temp 97.5 F L 03/26/25 07:32 Pulse 66 03/26/25 07:32 Resp 17 03/26/25 07:32 BP 171/126 03/26/25 07:32 Pulse Ox 98 03/26/25 07:32 O2 Del Method Room Air 03/26/25 07:32 Discharge Plan Discharge Patient Disposition: Home Condition: Stable Prescriptions: New hydrocodone-acetaminophen 5-325 mg tablet 1 - 2 tab PO .Q4-6H Qty: 40 0RF Continued (DME) tens until See Rx Instructions .Route .MEDSUPPLY Qty: 1 0RF Rx Instructions: As directed diclofenac sodium 75 mg tablet,delayed release (DR/EC) 75 mg PO BID (DME) lumbar corset brace See Rx Instructions .Route .MEDSUPPLY Qty: 1 0RF Rx Instructions: As directed fluoxetine [Prozac] 40 mg Capsule 40 mg PO DAILY Rx Instructions: Take 40 mg orally with 20 mg orally to equal 60 mg once daily atorvastatin [Lipitor] 10 mg Tablet 10 mg PO DAILY methotrexate sodium 2.5 mg Tablet 20 mg PO Q7D Rx Instructions: On Fridays pantoprazole [Protonix] 40 mg Tablet,Delayed Release (Dr/Ec) 40 mg PO DAILY lisinopril 10 mg Tablet 20 mg PO DAILY folic acid 1 mg Tablet 1 mg PO DAILY tizanidine 4 mg tablet 4 mg PO Q6H PRN (Reason: muscle spasticity) Qty: 20 0RF Rx Instructions: do not exceed 3 doses per 24 hrs fluoxetine [Prozac] 20 mg Capsule 20 mg PO DAILY Rx Instructions: Take 20 mg orally with 40 mg orally to equal 60 mg once daily Discharge Order = DC NOW: Discharge Order (Routine); Ordered 03/26/25 Ordered By: Saw Monterroso Discharge Diet: Advance as tolerated Discharge Activity: Limit activity as instructed Patient Instructions: Acute Wound Care (DC), Post Anesthesia Care Activity Restrictions/Additional Instructions: Thank you for [facility] for your care! The following is a list of instructions, from your provider, to follow upon your discharge to ensure you have the optimal recovery from your recent injury orsurgery. Follow-up care is a le[place] part of your treatment and safety. Be sure to make and go to all appointments, and call your doctor if you are having problems. If you do not already have a follow-up appointment made, call Dr. Monterroso office in the next 1-3 days to make follow up appointment for 2 weeks at [phone]. It is also a good idea to know your test results and keep a list of the medicines you take. Medications will be prescribed for you at your provider's discretion. These medications are to be used as instructed; if they are taken more often that prescribed they will not be refilled early and in most cases will not be refilled at all. > When a refill is needed,you should contact pedro smith 2-3 business days before your prescription runs out. Medications will NOT be refilled by button tufting machine operator providers after hours! > Many pain medications contain Tylenol (Acetaminophen). Do not consume more than 4,000 mg of Tylenol per day in total with any combination ofmedications. > Pain medications can cause constipation. Please use an over the counter stool softener as directed, while taking pain medications. Consulty our local pharmacist with questions or recommendations on stool softeners. If constipation persists, contact our office or your primary care provider. > While under our care,you are not to receive pain medications or other controlled substances from any other provider unless our office is notified and approves. Any attempts to do so will result in refusal to prescribe any further pain medications and possible dismissal from our practice. ? Your wound and/or dressing should remain clean and dry for 2 days after surgery. On postoperative day 2 (48 hours after your surgery) the dressing (if present) should be removed and it is okay to shower and get the incision wet. Pad dry afterwards. No further dressing should be required from that point on. Do not put any creams or ointments on theincision > It is normal for there to be a small amount of discharge (bloody or blood tinged) present from a surgical wound for the first 1-3days. > The wound should be examined twice a day for signs of infection. Mild redness or bruising is to be expected but indications that an infection maybe starting would include; An increase in redness, swelling, or discharge, a foul odor present around the incision, and/or a fever greater than 101 ?F ? Showering is permitted, however we ask that you do not take a bath, sit in a whirlpool / Jacuzzi, or go swimming for 1 month. For only the first 2 days after surgery, lt wilt be necessary for you to cover your wound/dressing with plastic and tape to keep it dry. ? Walking is essential for the healing process after surgery. We would like you to slowly advance your walking. This should be done on relatively flat clear ground (inside or out) or can be done on a treadmill. Remember this goal does not have to happen all at once, slowly increase your distance and duration. This can be broken into more more than one walk per day as tolerated. Patients who walk as directed after surgery rarely require Physical Therapy. In the unlikely event this issue arises your provider will direct hospital staff to make the appropriate arrangements. ? No lifting over 5 pounds {a gallon of milk) or bending/twisting until further notice. Each of these activities places an unnecessary amount of stress onto the body and can impede the delicate healing process. > Instead of bending at the waist, keep your back straight and bend at the knees. > Instead of twisting your torso, keep your back straight and turn your entire body with your feet. ? You may sleep in any position which makes you comfortable. Many patients find comfort sleeping in a reclining chair. It is not abnormal to have difficulty sleeping for the first several weeks following your surgery. We recommend trying Benadry! or Tylenol PM as directed to help with your sleeping difficulties. Both medications are over the counter and available withoutprescription. ? NO SMOKING!!! Smoking dramatically increases the probability of developing postoperative wound infections. ? Common complaints after lumbar and/or thoracic spine surgery include, but are not limited to: numbness and/or tingling in the legs, pain around the incision and surrounding tissues, muscle spasms, or stiffness of the middle to low back. Contact our office if these symptoms persist or if an acute change occurs. ? No driving for the first 3-5days, and not while taking narcotics until seen at your follow-up appointment and cleared. There are no restrictions for riding on short trips, however if you take a longer trip, arrangements should be made to make regular stops to get out of the vehicle and stretch . ? Swelling is an unfortunate event that will take place with any surgery and is the primary source of your postoperative discomfort. While walking and regular approved activities helps control inflammation, there are additional steps you can take to minimizeswelling. > Place ice over the surgical site and surrounding tissue for twenty minutes, followed by applying a low/medium heat (heating pad) for an additional twenty minutes every 1-2 hours as needed for painrelief. > You may use of over the counter anti-inflammatory medications (Ibuprofen, Motrin, Aleve, Advil, etc) as directed on the package label. These types of medicines wm significantly reduce the amount of discomfort you experience after surgery from swelling. It should be noted that if you have and allergy to any of these medications, or a history of ulcers or kidney disease you should consult you primary care provider prior to starting these medications. Print Language: Bermudian Discharge Attestations Time Spent in Discharge Care*: less than 30 min Quality Metrics Clinical Quality Measures [ No reported AMI, CVA or VTE this stay] Coding Level of Care Code Acute Code for Chg Fwd
--- NOTE | 2025-03-26 10:03 | PM.OP ---
Operative Report Date of procedure: March 26, 2025 Pre-op diagnosis: Painful orthopedic hardware in spine Post-op diagnosis: same Procedure done: Removal of deep hardware from spine Surgeon: Saw Monterroso DO Estimated blood loss (mL): 25 Procedure: Removal of deep hardware from spine Patient brought to the procedure after undergoing anesthesia the patient was placed in the prone position. Arteries appear well-padded patient's prepped draped also fashion. Skin incision made over the midline at the lumbar incision. The thoracolumbar fascia was identified and incision was made over the iliac screw on the right. Dissected down to the pasquale and the iliac screw. The Was removed. Wire was then cut and then wire was removed. And then the iliac screw was removed. Next tension was brought to the left side again thoracolumbar fascia identified Wiltsie approach over the screw was used. Pasquale was cut. Wire was removed. The end cap was removed. And then the screw was removed. Both the right and the left iliac screws removed. Wounds were irrigated vancomycin powder was placed and wound was closed in layered fashion with 0 Vicryl 2-0 Vicryl and Monocryl suture. Sterile dressings were applied and patient transferred the PACU in stable condition
--- NOTE | 2025-03-26 10:43 | XR_ITS ---
WS: [id number] Exam: XR lumbar spine 2-3V* [id number] Date/Time of Exam: 03/26/2025 10:43 AM Reason For Exam: Removal of deep hardware from spine A single AP intraoperative C-arm image of the lower lumbar spine is submitted for evaluation. The image was obtained for intraoperative visualization purposes.
--- NOTE | 2025-03-26 12:05 | ANE.PACU2 ---
Inpatient post-anesthesia follow up: Airway intact: Yes Vital signs: Temperature 97.5 F Pulse Rate 74 Respiratory Rate 16 Blood Pressure 144/75 Pulse Oximetry 95 Oxygen Delivery Me thod Room Air Oxygen Flow Rate 8 Fraction of Inspir ed Oxygen Hydration adequate: Yes Nausea and vomiting: No Pain level: 1 Mental status: Baseline
== END 2025-03-26 12:06 | disposition home or self-care (01) | DRG 496 ==
LOC: OR 09:56 → MEDSURG 10:53
PROVIDERS: Admitting Provider Orthopaedic Surgery; PCP Family Medicine; Visit Provider Orthopaedic Surgery
PROC: 0QP004Z Removal of Internal Fixation Device from Lumbar Vertebra, Open Approach (ICD-10-PCS; principal; 2025-03-26 08:30)
DX: T84.84XA Pain due to internal orthopedic prosthetic devices, implants and grafts, initial encounter (principal); Z68.41 Body mass index [BMI] 40.0-44.9, adult; Y79.8 Miscellaneous orthopedic devices associated with adverse incidents, not elsewhere classified; I10 Essential (primary) hypertension; K21.9 Gastro-esophageal reflux disease without esophagitis; E66.01 Morbid (severe) obesity due to excess calories; F17.210 Nicotine dependence, cigarettes, uncomplicated
CPT/HCPCS: 72100; 76000; J0690; J1100; J1171; J2250; J2405; J2704; J3010; J3373; J3490; J7030; J9999

== ENCOUNTER → 2025-04-08 14:25 | Outpatient (BNVA) | payer MEDICARE, MEDICAID, SELFPAY | PROVIDERS: PCP Family Medicine; Visit Provider Orthopaedic Surgery | DX: Z98.890 Other specified postprocedural states (principal); Z98.1 Arthrodesis status | CPT/HCPCS: 99024 ==

== ENCOUNTER → 2025-05-06 08:02 | Outpatient (BNVA) | payer MEDICARE, MEDICAID, SELFPAY | PROVIDERS: PCP Family Medicine; Visit Provider Orthopaedic Surgery | DX: Z98.890 Other specified postprocedural states (principal) | CPT/HCPCS: 72100; 99024 ==

== ENCOUNTER 2025-05-21 09:16 | Emergency (ER) | payer MEDICARE, MEDICAID, SELFPAY ==
--- OUTSIDE RECORDS SUMMARY | 2025-05-21 09:28 | XMS_ITS | Encounter Summary ---
Author Organization [facility] [place] Address [address] [place] [address] Care Team Providers Care Customer Relations Consultant Name Role Phone Unavailable Primary Care Provider Unavailabl e Encounter Details Date Type Department Care Team (Latest Contact Info) Description 02/13/2001 Outpatient Historical [facility] [place] NO ADDRESS ON FILE Gynecologic examination (Primary Dx); Screening for malignant neoplasm of the cervix; Screening for nephropathy; Premenstrual tension Social History Tobacco Use Types Packs/Day Years Used Date Smoking Tobacco: Never Assessed Comments Unknown Sex and Gender Information Value Date Recorded Sex Assigned at Not on file Legal Sex Female 5:03 AM MEDIA SPECIALIST Gender Identity Not on file Sexual Orientation Not on file documented as of this encounter Plan of Treatment Not on file documented as of this encounter Visit Diagnoses Diagnosis Gynecologic examination- Primary Gynecological examination Screening for malignant neoplasm of the cervix Screening for nephropathy Premenstrual tension Premenstrual tension syndromes documented in this encounter
--- OUTSIDE RECORDS SUMMARY | 2025-05-21 09:28 | XMS_ITS | Encounter Summary ---
Author Organization [facility] Address [address] [place] [address] Care Team Providers Care Lead Designer Name Role Phone Unavailable Primary Care Provider Unavailabl e Encounter Details Date Type Department Care Team (Late st Contact Info) Description 05/08/1998 Outpatient Historical [facility] Social History Tobacco Use Types Packs/Day Years Used Date Smoking Tobacco: Never Assessed Comments Unknown Sex and Gender Information Value Date Recorded Sex Assigned at Not on file Legal Sex Female 5:03 AM UPHOLSTERY CUTTER Gender Identity Not on file Sexual Orientation Not on file documented as of this encounter Plan of Treatment Not on file documented as of this encounter Visit Diagnoses Not on filedocumented in this encounter
--- OUTSIDE RECORDS SUMMARY | 2025-05-21 09:28 | XMS_ITS | Encounter Summary ---
Author Organization [facility] Address [address] [place] [address] Care Team Providers Care Billet Checker Name Role Phone Unavailable Primary Care Provider Unavailabl e Encounter Details Date Type Department Care Team (Late st Contact Info) Description 05/08/1998 Outpatient Historical [facility] 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
--- OUTSIDE RECORDS SUMMARY | 2025-05-21 09:28 | XMS_ITS | Clinical Summary ---
Author Organization [facility] Address [address] [place] [address] Care Team Providers Care Service Superintendent Name Role Phone Unavailable Primary Care Provider Unavailabl e Social History Tobacco Use Types Packs/Day Years Used Date Smoking Tobacco: Never Assessed Comments Unknown Sex and Gender Information Value Date Recorded Sex Assigned at Not on file Legal Sex Female 5:03 AM LIFE SKILLS COORDINATOR Gender Identity Not on file Sexual Orientation Not on file Plan of Treatment Health Maintenance Due Date Last Done Comments DTAP/TDAP/TD VACCINES (1 - Tdap) 1981 HPV/Cotest (21-29) 1983 HPV/Cotest (30-65) 1992 BREAST CANCER SCREENING 2002 CERVICAL CANCER SCREENING 02/14/2004 PAP SMEAR 02/14/2004 02/13/2001 COLORECTAL SCREENING 2007 Colorectal Cancer Screening 2007 FIT-DNA Q 3 years 2007 FIT/FOBT Q 1 year 2007 Flex Sig/CT Colonography Q 5 years 2007 ZOSTER VACCINE (1 of 2) 2012 INFLUENZA VACCINE (#1) 2025 RSV VACCINE (60+ or ) (1 - 1-dose 75+ series) 2037 Insurance Perk PLUS [id number] HMO
--- OUTSIDE RECORDS SUMMARY | 2025-05-21 09:28 | XMS_ITS | Encounter Summary ---
[facility] Address [address] [place] [address] Care Team Providers Care Biostatistics Manager Name Role Phone Unavailable Primary Care Provider Unavailabl e Encounter Details Date Type Department Care Team (Latest Contact Info) Description 01/05/2000 Outpatient Historical [facility] [place] NO ADDRESS ON FILE Routine medical exam (Primary Dx); Screening for malignant neoplasm of the cervix; Contact dermatitis and other eczema, due to unspecified cause; Benign neoplasm of skin, site unspecified Social History Tobacco Use Types Packs/Day Years Used Date Smoking Tobacco: Never Assessed Comments Unknown Sex and Gender Information Value Date Recorded Sex Assigned at Not on file Legal Sex Female 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
--- OUTSIDE RECORDS SUMMARY | 2025-05-21 09:29 | XMS_ITS | Clinical Summary ---
Author Organization [facility] Address [address] Evans: Epic Prelude ADT BHAVIK CARPIO [address] Care Team Providers Care Field Captain Name Role Phone Puneet Corona MD Primary Care Provider [phone] Allergies No known active allergies Medications atorvastatin (LIPITOR) 10 mg tablet Take 1 Tablet by mouth daily. 5 Active Athlete's Foot, clotrimazole, 1 % Cream apply TO affected and surrounding areas of SKIN TWICE DAILY in THE morning and evening 5 Active diclofenac sodium (VOLTAREN) 75 mg Tablet, Delayed Release (E.C.) Take 1 Tablet by mouth 2 times daily. 5 Active FLUoxetine (PROzac) 20 mg capsule Take 1 Capsule by mouth daily. 5 Active folic acid (FOLVITE) 1 mg tablet Take 1 Tablet by mouth daily. 5 Active lisinopriL (PRINIVIL) 20 mg tablet Take 1 Tablet by mouth daily. 5 Active methotrexate (RHEUMATREX) 2.5 mg Tablet take EIGHT tablets BY MOUTH ONCE a week ON THE same DAY each week take folic acid 1mg DAILY while ON this medication 5 Active pantoprazole (PROTONIX) 40 mg Tablet, Delayed Release (E.C.) Take 1 Tablet by mouth daily. 5 Active Active Problems No known active problems Encounters Date Type Department Care Team Description 05/13/2025 External Device Data STL ABSTRACTION Provider, Abstract 05/01/2025 10:30 AM CDT Office Visit [facility] [address] [place] [address] Anamaria Gamble, DO Nipple discharge (Primary Dx); Intraductal papilloma of breast, left 04/03/2025 Results Follow-Up [place] [address] [place] [address] Juice Hidalgo MD PATHOLOGY 04/01/2025 6:31 AM CDT - 04/01/2025 11:59 PM CDT Hospital Encounter [place] [address] [place] [address] JacePilar hughes D, NET WPF DEVELOPER Discharge Disposition: Home or Self Care 04/01/2025 6:30 AM CDT - 04/01/2025 11:59 PM CDT Hospital Encounter [place] [address] [place] [address] Pilar Mccormick D, NET WPF DEVELOPER Discharge Disposition: Home or Self Care 03/18/2025 Results Follow-Up [facility] [address] [place] [address] Pilar Mccormick D, NET WPF DEVELOPER MAMMO 3D BATSHEVA DIAGNOSTIC BILAT W OR WO CAD, MAMMO BREAST US LEFT LTD 03/17/2025 8:51 AM CDT - 03/17/2025 11:59 PM CDT Hospital Encounter [place] [address] [place] [address] Pilar Mccormick D, NET WPF DEVELOPER Discharge Disposition: Home or Self Care 03/17/2025 8:07 AM CDT - 03/17/2025 11:59 PM CDT Hospital Encounter [place] [address] [place] [address] JacePilar hughes D, NET WPF DEVELOPER Discharge Disposition: Home or Self Care 03/11/2025 External Device Data STL ABSTRACTION Provider, Abstract 03/11/2025 External Device Data STL ABSTRACTION Provider, Abstract 03/11/2025 External Device Data STL ABSTRACTION Provider, Abstract 03/07/2025 9:20 AM CDT Office Visit [facility] [address] [place] [address] Pilar Mccormick, KOSTA Galactorrhea (CODE) (Primary Dx); Encounter to establish care; Nipple discharge; Other specified counseling; Genetic testing; At high risk for breast cancer; Family history of breast cancer; Family history of uterine cancer 03/07/2025 Orders Only [facility] [address] [place] [phone] Dina Finnegan, CHARTERED FINANCIAL ANALYST 02/27/2025 Abstract [facility] [address] [place] [address] Provider, Abstract from Last 3 Months Family History Medical History Relation Name Comments Uterine or Endometrial Cancer, Not Including Cervical Maternal Aunt 1 Uterine or Endometrial Cancer, Not Including Cervical Maternal Aunt 2 Breast Cancer Mother Melanoma Neg Hx Ovarian Cancer Neg Hx Pancreatic Cancer Neg Hx Relation Name Status Comments Maternal Aunt 1 Maternal Aunt 2 Mother Social History Tobacco Use Types Packs/Day Years Used Date Smoking Tobacco: Every Day Cigarettes Tobacco Cessation:Ready to Q uit: Not Asked; Counseling Given: Not Answered Comments No Sex and Gender Information Value Date Recorded Sex Assigned at Not on file 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 Sex 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 Gender Identity Not on file Sexual Orientation Not on file Last Filed Vital Signs Vital Sign Reading Time Taken Comments Blood Pressure 122/80 05/01/2025 10:25 AM CDT Pulse 82 05/01/2025 10:25 AM CDT Temperature - - Respiratory Rate - - Oxygen Saturation 96% 05/01/2025 10:25 AM CDT Inhaled Oxygen Concentration - - Weight 117.5 kg (259 lb) 05/01/2025 10:25 AM CDT Height 160 cm (5' 3 ) 05/01/2025 10:25 AM CDT Body Mass Index 45.88 05/01/2025 10:25 AM CDT Plan of Treatment Upcoming Encounters Date Type Department Care Team (Late st Contact Info) Description 09/05/2025 9:00 AM TRACK HOE OPERATOR Office Visit [facility] [address] [place] [address] Pilar Mccormick, NET WPF DEVELOPER [address] [place] [address] Health Maintenance Due Date Last Done Comments Pre-Diabetes and Diabetes Screening 1962 DTAP/TDAP/TD VACCINES (1 - Tdap) 1981 COLORECTAL SCREENING 2007 Colorectal Cancer Screening 2007 FIT-DNA Q 3 years 2007 FIT/FOBT Q 1 year 2007 Flex Sig/CT Colonography Q 5 years 2007 ZOSTER VACCINE (1 of 2) 2012 RSV VACCINE (60+ or ) (1 - Risk 60-74 years 1-dose series) 2022 INFLUENZA VACCINE (#1) 2025 09/18/2016, 1899 BREAST CANCER SCREENING 03/17/2026 03/17/2025 Procedures Procedure Name Priority Date/Time Associated Diagnosis Comments PATHOLOGY Pathology 04/01/2025 9:09 AM CDT MAMMO BREAST US BIOPSY LEFT Routine 04/01/2025 9:08 AM CDT Abnormal findings on diagnostic imaging of breast MAMMO 3D BATSHEVA POST US/STEREO GUIDED PROCEDURE LT Routine 04/01/2025 8:51 AM CDT Abnormal findings on diagnostic imaging of breast MAMMO BREAST US LEFT LTD Routine 03/17/2025 10:23 AM CDT Galactorrhea (CODE) MAMMO 3D BATSHEVA DIAGNOSTIC BILAT W OR WO CAD Routine 03/17/2025 8:52 AM CDT Galactorrhea (CODE) Nipple discharge from Last 3 Months Results * PATHOLOGY (04/01/2025 9:09 AM CDT) CASE REPORT Surgical Pathology Report Case: [id number] Authorizing Provider: Juice Hidalgo MD Collected: 04/01/2025 09:09 AM Ordering Location: [facility] Received: 04/01/2025 12:52 PM Pathologist: Darlene Ayala DO Specimen: Breast, left, 3 o'clock, subareolar 5 7:19 AM CDT [facility] FINAL DIAGNOSIS A. Left breast, 3 o'clock, subareolar, ultrasound-guided core needle biopsy (coil marker) - Intraductal papilloma Darlene Ayala DO [id number] 5 7:19 AM CDT [facility] at 0719 CDT GROSS DESCRIPTION A. Received in a container of formalin labeled Jones -breast, left, 3:00, subareolar (coil) are 4 fibrofatty soft tissue cores, measuring 1.0 cm in greatest dimension. The specimen is submitted entirely in A1. Time out of body: 8:03 AM Total cold ischemic time less than 1 hour. NOTE: This specimen will meet cold ischemic time (less than one hour) and formalin fixation time (6-72 hours) guidelines. [facility] 5 7:19 AM CDT [facility] OPERATIVE PROCEDURE Ultrasound-guided 5 7:19 AM CDT [facility] CLINICAL INFORMATION intraductal mass. nipple discharge 7:19 AM T [facility] COMMENT The [employer] voice-activated dictation system may have been used in the creation of this report. Inherent to this system is the possibility of errors in syntax, grammar, punctuation, or other areas that could impact interpretation. If there are interpretive questions about the report, please contact the performing pathologist. Unless gross only is specified in the diagnosis, the microscopic examination substantiates the above cited diagnosis. The performance characteristics of all immunohistochemical stains cited in this report (if any) were determined by the Diagnostic Immunohistochemistry Laboratory of [facility] in compliance with CLIA'88 regulations. Some of these tests rely on the use of analyte specific reagents and are subject to specific labeling requirements by the FDA. All controls show appropriate reactivity. This testing was developed by the Diagnostic Immunohist[facility] of [facility]. It has not been cleared or approved by the FDA. The FDA has determined that such clearance or approval is not necessary. 7:19 AM CDT [facility] Tissue LEFT BREAST STRUCTURE / Unknown Collection / Unknown 04/01/2025 9:09 AM CDT 04/01/2025 12:52 PM CDT us Juice Hidalgo MD PATHOLOGY/CYTOLOGY ORDERABLE S Final Result [facility] CLIA # [id number] [address] [place] [id number] * MAMMO BREAST US BIOPSY LEFT (04/01/2025 9:08 AM CDT) Anatomical Region Laterality Modality Breast Left Ultrasound Tissue SPECIMEN FROM BREAST / Unknown 04/01/2025 7:18 AM CDT Addenda Addendum by Juice Hidalgo MD on 04/03/2025 8:08 AM CDT RADIOLOGY/PATHOLOGY ADDENDUM: Pathology: A. Left breast, 3 o'clock, subareolar, ultrasound-guided core needle biopsy (coil marker) - Intraductal papilloma Concordancy: Concordant Recommendation: Finding is benign. Surgical consultation for possible excision is recommended. Patient has nipple discharge. Two additional subcentimeter possible masses were noted within the 6:00 subareolar breast and if surgical excision is performed, these additional nearby findings are recommended for excision as well. The Breast Center Nurse will notify the patient of these results and recommendations. Impressions 04/01/2025 8:34 AM CDT IMPRESSION: Ultrasound-guided needle core biopsy of the left breast as described above. Further recommendations will be based on pathology results. Narrative 04/01/2025 8:34 AM CDT MAMMO BREAST US BIOPSY LEFT, MAMMO 3D BATSHEVA POST US/STEREO GUIDED PROCEDURE LT INDICATION: This procedure was performed for the small subareolar mass at 3:00. PROCEDURE: Informed consent was obtained from the patient. A timeout was performed. She was placed on the ultrasound table, and the breast was prepped and draped in the usual sterile fashion. The skin and subcutaneous tissue were anesthetized with 1% lidocaine. A small skin xena was made with a scalpel. Utilizing a 14-gauge spring-loaded core biopsy needle, several needle core specimens were obtained. Pre- and post-fire imaging demonstrate the needle in accurate position. The needle was removed, and hemostasis was achieved. A coil-shaped biopsy marker was placed. Post-procedure mammogram demonstrates the biopsy marker in appropriate position with surrounding post biopsy changes. Pressure dressing and ice pack were applied. There was no immediate complication. Verbal and written post-procedure instructions were given to the patient, and she was released in good condition. The core needle specimens were sent to surgical pathology. us Pilar Mccormick [facility] MAMMO ORDERABLES Edited Result - Final * MAMMO 3D BATSHEVA POST US/STEREO GUIDED PROCEDURE LT (04/01/2025 8:51 AM CDT) Anatomical Region Laterality Modality Breast Left Mammography 04/01/2025 8:14 AM CDT Addenda Addendum by Juice Hidalgo MD on 04/03/2025 8:08 AM CDT RADIOLOGY/PATHOLOGY ADDENDUM: Pathology: A. Left breast, 3 o'clock, subareolar, ultrasound-guided core needle biopsy (coil marker) - Intraductal papilloma Concordancy: Concordant Recommendation: Finding is benign. Surgical consultation for possible excision is recommended. Patient has nipple discharge. Two additional subcentimeter possible masses were noted within the 6:00 subareolar breast and if surgical excision is performed, these additional nearby findings are recommended for excision as well. The Breast Center Nurse will notify the patient of these results and recommendations. Impressions 04/01/2025 8:34 AM CDT IMPRESSION: Ultrasound-guided needle core biopsy of the left breast as described above. Further recommendations will be based on pathology results. Narrative 04/01/2025 8:34 AM CDT MAMMO BREAST US BIOPSY LEFT, MAMMO 3D BATSHEVA POST US/STEREO GUIDED PROCEDURE LT INDICATION: This procedure was performed for the small subareolar mass at 3:00. PROCEDURE: Informed consent was obtained from the patient. A timeout was performed. She was placed on the ultrasound table, and the breast was prepped and draped in the usual sterile fashion. The skin and subcutaneous tissue were anesthetized with 1% lidocaine. A small skin xena was made with a scalpel. Utilizing a 14-gauge spring-loaded core biopsy needle, several needle core specimens were obtained. Pre- and post-fire imaging demonstrate the needle in accurate position. The needle was removed, and hemostasis was achieved. A coil-shaped biopsy marker was placed. Post-procedure mammogram demonstrates the biopsy marker in appropriate position with surrounding post biopsy changes. Pressure dressing and ice pack were applied. There was no immediate complication. Verbal and written post-procedure instructions were given to the patient, and she was released in good condition. The core needle specimens were sent to surgical pathology. us Pilar Mccormick [facility] MAMMO ORDERABLES Edited Result - Final * (ABNORMAL) MAMMO BREAST US LEFT LTD (03/17/2025 10:23 AM CDT) Anatomical Region Laterality Modality Left Ultrasound 03/17/2025 10:2 3 AM CDT Narrative 03/17/2025 10:31 AM CDT EXAMINATION: MAMMO 3D BATSHEVA DIAGNOSTIC BILAT W OR WO CAD, MAMMO BREAST US LEFT LTD INDICATION: 64-year-old patient presents with complaint of left-sided brown-yellow nipple discharge which has been present for the past 5-6 years. This occurs spontaneously and happens a couple times per day. Family history is positive for breast cancer diagnosed in mother. COMPARISON: 05/31/2024 back through 07/24/2018 FINDINGS: MAMMOGRAPHY: BREAST COMPOSITION: There are scattered areas of fibroglandular density. DIAGNOSTIC RIGHT MAMMOGRAM No suspicious masses, calcifications or areas of distortion are seen. DIAGNOSTIC LEFT MAMMOGRAM No suspicious masses, calcifications or areas of distortion are seen. ULTRASOUND OF THE LEFT BREAST: Focused ultrasound in the subareolar region demonstrates multiple minimally dilated and debris-filled ducts throughout. This is most notable at the 9:00 subareolar position. At the 3:00 subareolar position, a hypoechoic intraductal mass is seen which measures 2.1 x 3.1 x 4.0 mm. Minimal internal flow is present. At the 6:00 subareolar position, there are two intraductal inspissated debris versus hyperechoic masses measuring 2.7 and 2.3 mm. No internal flow or posterior acoustic shadowing is seen. IMPRESSIONS: 1. Recommend ultrasound-guided biopsy of the intraductal mass at the 3:00 subareolar position. 2. There are two foci of hyperechoic inspissated debris versus less hypoechoic avascular intraductal mass at the 6:00 subareolar position. Management can be made based on pathology results of the aforementioned biopsy. If negative, recommend six month follow-up ultrasound of the left breast. BI-RADS 4. Suspicious findings. Findings and verbal/written recommendations were conveyed to the patient after completion of the exam. us Pilar Mccormick [facility] MAMMO ORDERABLES Final Result * (ABNORMAL) MAMMO 3D BATSHEVA DIAGNOSTIC BILAT W OR WO CAD (03/17/2025 8:52 AM CDT) Anatomical Region Laterality Modality Breast Bilateral Mammography 03/17/2025 8:52 AM CDT Narrative 03/17/2025 10:31 AM CDT EXAMINATION: MAMMO 3D BATSHEVA DIAGNOSTIC BILAT W OR WO CAD, MAMMO BREAST US LEFT LTD INDICATION: 64-year-old patient presents with complaint of left-sided brown-yellow nipple discharge which has been present for the past 5-6 years. This occurs spontaneously and happens a couple times per day. Family history is positive for breast cancer diagnosed in mother. COMPARISON: 05/31/2024 back through 07/24/2018 FINDINGS: MAMMOGRAPHY: BREAST COMPOSITION: There are scattered areas of fibroglandular density. DIAGNOSTIC RIGHT MAMMOGRAM No suspicious masses, calcifications or areas of distortion are seen. DIAGNOSTIC LEFT MAMMOGRAM No suspicious masses, calcifications or areas of distortion are seen. ULTRASOUND OF THE LEFT BREAST: Focused ultrasound in the subareolar region demonstrates multiple minimally dilated and debris-filled ducts throughout. This is most notable at the 9:00 subareolar position. At the 3:00 subareolar position, a hypoechoic intraductal mass is seen which measures 2.1 x 3.1 x 4.0 mm. Minimal internal flow is present. At the 6:00 subareolar position, there are two intraductal inspissated debris versus hyperechoic masses measuring 2.7 and 2.3 mm. No internal flow or posterior acoustic shadowing is seen. IMPRESSIONS: 1. Recommend ultrasound-guided biopsy of the intraductal mass at the 3:00 subareolar position. 2. There are two foci of hyperechoic inspissated debris versus less hypoechoic avascular intraductal mass at the 6:00 subareolar position. Management can be made based on pathology results of the aforementioned biopsy. If negative, recommend six month follow-up ultrasound of the left breast. BI-RADS 4. Suspicious findings. Findings and verbal/written recommendations were conveyed to the patient after completion of the exam. Pilar Mccormick NET WPF DEVELOPER MAMMO ORDERABLES Final Result from Last [address] [place] [address] [place] [id number] [place] Care Teams Field Captain Relationship Specialty Start Date End Date Puneet Corona MD [address] [place] [id number] PCP - General Family Practice 03/10/25
--- OUTSIDE RECORDS SUMMARY | 2025-05-21 09:29 | XMS_ITS | Encounter Summary ---
Author Organization [facility] Address [address] [place] [address] Care Team Providers Care Adjunct Professor Of [place] Name Role Phone Unavailable Primary Care Provider Unavailabl e Encounter Details Date Type Department Care Team (Late st Contact Info) Description 05/08/1998 Outpatient Historical [facility] 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
--- OUTSIDE RECORDS SUMMARY | 2025-05-21 09:29 | XMS_ITS | Encounter Summary ---
Author Organization [facility] Address [address] [place] [address] Care Team Providers Care Gas Worker Name Role Phone Puneet Corona MD Primary Care Provider [phone] Encounter Details Date Type Department Care Team (Late st Contact Info) Description 03/18/2025 Results Follow-Up [facility] Breast Surgery [address] [place] [address] Pilar Mccormick FNP [address] [place] [address] MAMMO 3D BATSHEVA DIAGNOSTIC BILAT W OR WO CAD, MAMMO BREAST US LEFT LTD Social History Tobacco Use Types Packs/Day Years Used Date Smoking Tobacco: Every Day Cigarettes Comments No Sex and Gender Information Value Date Recorded Sex Assigned at Not on file Legal Sex Female 2:53 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 Biopsy scheduled for April 01, 2025 documented in this encounter Plan of Treatment Upcoming Encounters Date Type Department Care Team (Late st Contact Info) Description 09/05/2025 9:00 AM PRECINCT POLICE SERGEANT Office Visit [facility] Breast [facility] [address] [place] [address] Pilar Mccormick, ENGINEERING TECHNICAL SPECIALIST [address] [place] [address] documented as of this encounter Visit Diagnoses Not on filedocumented in this encounter Care Teams Gas Worker Relationship Specialty Start Date End Date Puneet Corona MD [address] [place] [phone] PCP - General Family Practice 03/10/25 documented as of this encounter
[2025-05-21 09:37] VITALS: BP 149/88; PULSE 72; RESP 18; TEMP 36.7; O2SAT 96; BMI 45.1
--- NOTE | 2025-05-21 09:40 | XR_ITS ---
WS: [id number] Pelvis, AP view, 05/21/2025 Clinical Data: pain Comparison: Pelvis and both hips, 11/13/2023 Findings: No fractures or dislocations are seen. The hips show mild narrowing unchanged. There is a posterior lumbosacral fusion with fusion of both SI joints. The soft tissues are not remarkable. XR/XR pelvis 1-2V* [id number] Impression: 1. No change in bilateral hip joint narrowing. 2. Postoperative fusion of the lumbar spine and SI joints.
--- NOTE | 2025-05-21 10:10 | W.ED.EXTPRO ---
HPI - Extremity Problem General: Chief complaint: Extremity Problem,Nontraumatic Stated complaint: both side hip pain Time Seen by Provider: 05/21/25 09:24 Source: patient Mode of arrival: ambulatory Limitations: no limitations History of Present Illness: 65-year-old female states that she has had bilateral hip pains that she states been going on for 5 years. She states that she has had multiple back surgeries and is continue to have hip pain. States if no change in her pain she is tired of having pain and has never had an x-ray of her hips. States pain sharp in nature rates a 5 out of 10 worse with movement improved with rest denies any bowel or bladder incontinence Associated symptoms: Deny chest pain, fever(s) or rash Related Data Home Medications ?Medication ?Instructions ?Recorded ?Confirmed atorvastatin 10 mg tablet (Lipitor) 10 mg PO DAILY 05/19/20 05/06/25 fluoxetine 40 mg capsule (Prozac) 40 mg PO DAILY 05/19/20 05/06/25 folic acid 1 mg tablet 1 mg PO DAILY 05/19/20 05/06/25 lisinopril 10 mg tablet 20 mg PO DAILY 05/19/20 05/06/25 methotrexate sodium 2.5 mg tablet 20 mg PO Q7D 05/19/20 05/06/25 pantoprazole 40 mg tablet,delayed 40 mg PO DAILY 05/19/20 05/06/25 release (Protonix) fluoxetine 20 mg capsule (Prozac) 20 mg PO DAILY 12/30/21 05/06/25 diclofenac sodium 75 mg 75 mg PO BID 06/29/23 05/06/25 tablet,delayed release sulfamethoxazole-trimethoprim PO 05/06/25 05/06/25 [Bactrim] Previous Rx's ?Medication ?Instructions ?Recorded tizanidine 4 mg tablet 4 mg PO Q6H PRN muscle spasticity 03/11/23 #20 tabs lumbar corset brace #1 ea 10/17/23 tens until #1 ea 07/25/24 hydrocodone 5 mg-acetaminophen 325 1 - 2 tab PO .Q4-6H #40 tabs 03/26/25 mg tablet prednisone 50 mg tablet 50 mg PO DAILY #5 tabs 05/21/25 Allergies Allergy/AdvReac Type Severity Reaction Status Date / Time No Known Allergies Allergy Verified 04/08/25 14:32 Review of Systems Const: Denies: fever(s), chills, body aches or change in appetite ENMT: Denies: throat pain or dental pain Card: Denies: chest pain Resp: Denies: dyspnea GI: Denies: abdominal pain, nausea, vomiting or diarrhea Musc: Reports: extremity pain; Denies: neck pain or back pain Skin/Breast: Denies: rash Neuro: Denies: headache(s) PFSH ED PFSH: Medical History Cystitis Family History Mother Cancer Bleeding disorder Social History Smoking and tobacco/nicotine status: unknown if used tobacco/nicotine Alcohol intake: never Substance/Drug Use: never Marital status: Current occupational status: disabled Physical Exam Const: COMMON NORMALS: no acute distress HENMT: COMMON NORMALS: normocephalic and atraumatic HEAD & SCALP: normocephalic and atraumatic Eye: COMMON NORMALS: conjunctivae normal CONJUNCTIVA: Yes conjunctivae normal Neck/C-Spine: COMMON NORMALS: full ROM and supple Chest: COMMONS NORMALS: normal inspection of the chest Resp: COMMON NORMALS: normal respiratory effort Cardio: COMMON NORMALS: regular rate RATE: regular rate Extremity: COMMON NORMALS: normal to inspection and full ROM Neuro: COMMON NORMALS: moves all extremities and no focal motor deficits Psych: COMMON NORMALS: mental status grossly normal, Normal thought process present and cooperative THOUGHT PROCESS: Normal thought process present Skin: COMMON NORMALS: no rashes or lesions noted and no wounds GENERAL SKIN EXAM: no rashes or lesions noted Course Vital Signs: Vital signs: Vital Signs Temperature 98.1 F 05/21/25 09:37 Pulse Rate 72 05/21/25 09:37 Respiratory Rate 18 05/21/25 09:37 Blood Pressure 149/88 05/21/25 09:37 Pulse Oximetry 96 05/21/25 09:37 Oxygen Delivery Me thod Room Air 05/21/25 09:37 MDM - Extremity (Nontraumatic) Medical Decision Making Patient presents here with hip pain bilaterally is chronic in nature she is well-appearing here she is ambulatory she stable for discharge we will place her on steroid she is to follow-up with her PCP Medical Records I reviewed the patient's medical records. XR interpretation done by ED provider, pending radiology final review ED provider radiology interpretation(s): xr hip: no acute fx Discharge Plan Discharge Patient Disposition: Home Clinical Impression: Bilateral hip pain Condition: Stable Prescriptions: New prednisone 50 mg tablet 50 mg PO DAILY Qty: 5 0RF No Action (DME) tens until See Rx Instructions .Route .MEDSUPPLY Qty: 1 0RF Rx Instructions: As directed diclofenac sodium 75 mg tablet,delayed release (DR/EC) 75 mg PO BID (DME) lumbar corset brace See Rx Instructions .Route .MEDSUPPLY Qty: 1 0RF Rx Instructions: As directed sulfamethoxazole-trimethoprim [Bactrim] PO fluoxetine [Prozac] 40 mg Capsule 40 mg PO DAILY Rx Instructions: Take 40 mg orally with 20 mg orally to equal 60 mg once daily atorvastatin [Lipitor] 10 mg Tablet 10 mg PO DAILY methotrexate sodium 2.5 mg Tablet 20 mg PO Q7D Rx Instructions: On Fridays pantoprazole [Protonix] 40 mg Tablet,Delayed Release (Dr/Ec) 40 mg PO DAILY lisinopril 10 mg Tablet 20 mg PO DAILY folic acid 1 mg Tablet 1 mg PO DAILY tizanidine 4 mg tablet 4 mg PO Q6H PRN (Reason: muscle spasticity) Qty: 20 0RF Rx Instructions: do not exceed 3 doses per 24 hrs fluoxetine [Prozac] 20 mg Capsule 20 mg PO DAILY Rx Instructions: Take 20 mg orally with 40 mg orally to equal 60 mg once daily hydrocodone-acetaminophen 5-325 mg tablet 1 - 2 tab PO .Q4-6H Qty: 40 0RF Discharge Orders: Discharge ED (Routine); Ordered 05/21/25 Ordered By: Clary Garcia Referrals: Puneet Corona MD [Primary Care Provider, Family Practice] - 4-7 days Discharge Diet: Advance as tolerated Discharge Activity: Resume usual activity Patient Instructions: Hip Pain (ED) Print Language: Yi Coding Level of Care Code ED [employer] for Patria Moses
[2025-05-21] MEDS: HYDROcodone-acetaminophen 5-325 mg Tablet 1 TAB PO (10:15)
== END 2025-05-21 10:31 | disposition home or self-care (01) ==
PROVIDERS: Emergency Provider Emergency Medicine; PCP Family Medicine
DX: M25.552 Pain in left hip (principal); M25.551 Pain in right hip; G89.29 Other chronic pain
CPT/HCPCS: 72170; 96372; 99284; J1100; J9999

== ENCOUNTER → 2025-05-22 08:10 | Outpatient (BNVA) | payer MEDICARE, MEDICAID, SELFPAY | PROVIDERS: PCP Family Medicine; Visit Provider Orthopaedic Surgery | DX: Z98.890 Other specified postprocedural states (principal); Z98.1 Arthrodesis status | CPT/HCPCS: 99024 ==

== ENCOUNTER → 2025-06-26 08:11 | Outpatient (BNVA) | payer MEDICARE, MEDICAID, SELFPAY | PROVIDERS: PCP Family Medicine; Visit Provider Orthopaedic Surgery | DX: Z98.890 Other specified postprocedural states (principal); Z98.1 Arthrodesis status | CPT/HCPCS: 72100; 99024 ==